=== PATIENT | female | born 1955 | race Caucasian/White ===

== ENCOUNTER 2019-11-06 07:25 | Outpatient (CLI) | payer OTHER, SELFPAY ==
[2019-11-06 08:33] LABS: Eosinophils Percent Auto 0.6 % (0-4.4); Hematocrit 49.1 % (37.0-47.0); Hemoglobin 15.7 g/dL (12.0-15.0); Immature Platelet Fraction Pct 8.3 % (0.9-11.2); Lymphocytes Percent Auto 24.8 % (18.3-44.2); Mean Corpuscular Volume 75.2 fl (80-100); Monocytes Absolute Auto 0.6 K/mm3 (0.1-0.6); Monocytes Percent Auto 34.2 % (2.6-8.5); Neutrophils Absolute Auto 0.7 K/mm3 (1.3-6.7); Neutrophils Percent Auto 40.4 % (45.5-73.1); Red Blood Count 6.53 M/mm3 (4.2-5.4); Red Cell Distribution Width 19.9 % (11.5-14.5)
[2019-11-06 09:07] LABS: Platelet Count Result 19 k/mm3 (150-375); White Blood Count 1.6 K/mm3 (4.5-10.0)
== END 2019-11-06 07:26 | disposition home or self-care (01) ==
PROVIDERS: PCP Family Medicine; Visit Provider Internal Medicine Medical Oncology
DX: D47.1 Chronic myeloproliferative disease (principal)
CPT/HCPCS: 36415; 85025; 85055

== ENCOUNTER 2019-11-17 07:12 | Outpatient (RCR) | payer OTHER, SELFPAY ==
[2019-11-10 08:12] LABS: Basophils Percent Auto 0.3 % (0.2-1.2); Eosinophils Percent Auto 1.1 % (0-4.4); Hematocrit 44.6 % (37.0-47.0); Hemoglobin 14.8 g/dL (12.0-15.0); Immature Granulocyte Absolute 0.01 K/mm3 (0.00-0.031); Immature Granulocyte Percent A 0.3 % (0-0.5); Immature Platelet Fraction Pct 10.8 % (0.9-11.2); Lymphocytes Absolute Auto 1.08 K/mm3 (0.9-3.2); Lymphocytes Percent Auto 29.7 % (18.3-44.2); Mean Corpuscular HGB Conc 33.2 g/dl (32-36); Mean Corpuscular Hemoglobin 24.1 pg (26-34); Mean Corpuscular Volume 72.8 fl (80-100); Monocytes Absolute Auto 0.8 K/mm3 (0.1-0.6); Monocytes Percent Auto 20.9 % (2.6-8.5); Neutrophils Absolute Auto 1.7 K/mm3 (1.3-6.7); Neutrophils Percent Auto 47.7 % (45.5-73.1); Platelet Count Result 37 k/mm3 (150-375); Red Blood Count 6.13 M/mm3 (4.2-5.4); Red Cell Distribution Width 19.5 % (11.5-14.5); White Blood Count 3.6 K/mm3 (4.5-10.0)
[2019-11-17 07:42] LABS: Basophils Percent Auto 0.8 % (0.2-1.2); Eosinophils Absolute Auto 0.1 K/mm3 (0-0.3); Eosinophils Percent Auto 1.3 % (0-4.4); Hematocrit 43.6 % (37.0-47.0); Hemoglobin 13.9 g/dL (12.0-15.0); Immature Granulocyte Absolute 0.01 K/mm3 (0.00-0.031); Immature Granulocyte Percent A 0.2 % (0-0.5); Lymphocytes Absolute Auto 1.15 K/mm3 (0.9-3.2); Lymphocytes Percent Auto 21.9 % (18.3-44.2); Mean Corpuscular HGB Conc 31.9 g/dl (32-36); Mean Corpuscular Hemoglobin 24.4 pg (26-34); Mean Corpuscular Volume 76.6 fl (80-100); Monocytes Absolute Auto 0.9 K/mm3 (0.1-0.6); Monocytes Percent Auto 17.5 % (2.6-8.5); Neutrophils Absolute Auto 3.1 K/mm3 (1.3-6.7); Neutrophils Percent Auto 58.3 % (45.5-73.1); Platelet Count Result 172 k/mm3 (150-375); Red Blood Count 5.69 M/mm3 (4.2-5.4); White Blood Count 5.3 K/mm3 (4.5-10.0)
== END 2020-02-08 23:59 | disposition home or self-care (01) ==
LOC: ANHLAB 07:12
PROVIDERS: PCP Family Medicine; Visit Provider Internal Medicine Medical Oncology
DX: D47.1 Chronic myeloproliferative disease (principal)
CPT/HCPCS: 36415; 85025; 85055

== ENCOUNTER 2019-11-21 11:41 | Outpatient (CLI) | payer OTHER, SELFPAY ==
--- NOTE | ~2019-11-21 | XR_ITS ---
EXAMINATION: XR thoracic spine 3V DATE: 11/21/2019 12:07 INDICATION: Thoracic back pain TECHNIQUE: AP, lateral and lateral swimmer's views of the thoracic spine were obtained. COMPARISON: 08/09/2017 FINDINGS: The vertebral body heights and alignment are normal. The intervertebral disc spaces are nomi ntained. There is no fracture. Small degenerative osteophytes project from the anterior endplates of multiple vertebral bodies. Median sternotomy wires and mediastinal surgical clips are seen, likely fr om prior coronary artery bypass grafting. IMPRESSION: 1. Mild thoracic spondylosis without acute findings or significant interval change. Reviewed, dictated and finalized at location A. TECHNICIAN IMPRESSION: 1. Mild thoracic spondylosis without acute findings or significant interval finn cande.
== END 2019-11-21 11:42 | disposition home or self-care (01) ==
LOC: ANHIMG 11:54
PROVIDERS: PCP Family Medicine; Visit Provider Family Medicine
DX: M47.814 Spondylosis without myelopathy or radiculopathy, thoracic region (principal)
CPT/HCPCS: 72072

== ENCOUNTER 2020-01-19 06:35 | Outpatient (RCR) | payer OTHER, SELFPAY ==
[2019-11-04 08:06] LABS: Basophils Percent Auto 0.4 % (0.2-1.2); Eosinophils Percent Auto 0.4 % (0-4.4); Hematocrit 48.9 % (37.0-47.0); Hemoglobin 15.9 g/dL (12.0-15.0); Immature Granulocyte Absolute 0.01 K/mm3 (0.00-0.031); Immature Granulocyte Percent A 0.4 % (0-0.5); Lymphocytes Absolute Auto 1.19 K/mm3 (0.9-3.2); Lymphocytes Percent Auto 46.9 % (18.3-44.2); Mean Corpuscular HGB Conc 32.5 g/dl (32-36); Mean Corpuscular Hemoglobin 24.4 pg (26-34); Mean Corpuscular Volume 75.1 fl (80-100); Monocytes Absolute Auto 0.9 K/mm3 (0.1-0.6); Monocytes Percent Auto 36.6 % (2.6-8.5); Neutrophils Absolute Auto 0.4 K/mm3 (1.3-6.7); Neutrophils Percent Auto 15.3 % (45.5-73.1); Red Blood Count 6.51 M/mm3 (4.2-5.4); Red Cell Distribution Width 19.7 % (11.5-14.5); White Blood Count 2.5 K/mm3 (4.5-10.0)
[2019-11-04 08:15] LABS: Platelet Count Result 22 k/mm3 (150-375)
[2019-11-04 08:16] LABS: Platelet Estimate Decreased (Adequate)
[2019-11-04 08:17] LABS: Ovalocytes 1+ (NORMAL); Poikilocytosis 1+ (NORMAL); Target Cells 1+ (NORMAL)
[2019-11-04 08:20] LABS: Alanine Aminotransferase 33 U/L (4-35); Alkaline Phosphatase 148 U/L (38-126); Aspartate Amino Transferase 53 U/L (14-36); Bilirubin,Total 1.3 mg/dL (0.2-1.3); Blood Urea Nitrogen 45 mg/dL (7-17); Calcium 8.8 mg/dL (8.4-10.2); Carbon Dioxide 16 mmol/L (22-30); Chloride 108 mmol/L (98-107); Estimated Glomerular Filt Rate 22; Glucose 110 mg/dL (65-105); Potassium 4.9 mmol/L (3.4-5.0); Sodium 139 mmol/L (137-145)
[2019-11-04 08:45] LABS: Carcinoembryonic Antigen 10.9 ng/mL (0.0-3.0)
[2019-12-05 15:53] LABS: Hematocrit 39.9 % (37.0-47.0); Hemoglobin 12.8 g/dL (12.0-15.0); Mean Corpuscular HGB Conc 32.1 g/dl (32-36); Mean Corpuscular Hemoglobin 25.2 pg (26-34); Mean Corpuscular Volume 78.5 fl (80-100); Mean Platelet Volume 11.5 fl (7.4-10.4); Platelet Count Result 824 k/mm3 (150-375); Red Blood Count 5.08 M/mm3 (4.2-5.4); Red Cell Distribution Width 26.3 % (11.5-14.5); White Blood Count 9.2 K/mm3 (4.5-10.0)
[2019-12-05 16:04] LABS: Alanine Aminotransferase 14 U/L (4-35); Albumin Level 3.9 g/dL (3.5-5.1); Alkaline Phosphatase 135 U/L (38-126); Aspartate Amino Transferase 26 U/L (14-36); Bilirubin,Total 0.6 mg/dL (0.2-1.3); Blood Urea Nitrogen 37 mg/dL (7-17); Calcium 8.8 mg/dL (8.4-10.2); Carbon Dioxide 20 mmol/L (22-30); Chloride 110 mmol/L (98-107); Estimated Glomerular Filt Rate 20; Glucose 87 mg/dL (65-105); Potassium 4.8 mmol/L (3.4-5.0); Sodium 141 mmol/L (137-145)
[2019-12-05 16:16] LABS: Band Neutrophils Percent 2 % (0-6); Eosinophils Absolute Manual 0.18 K/mm3 (0.02-0.5); Eosinophils Percent Manual 2 % (0-4); Lymphocytes Absolute Manual 1.74 K/mm3 (1.1-4.5); Monocytes Absolute Manual 1.38 K/mm3 (0.1-0.90); Monocytes Percent Manual 15 % (3-9); Neutrophils Absolute Manual 5.88 K/mm3 (1.7-7.2); Neutrophils Percent Manual 62 % (46-73); Platelet Estimate Adequate (Adequate); Total Cells Counted 100
[2019-12-05 16:34] LABS: Carcinoembryonic Antigen 7.8 ng/mL (0.0-3.0)
[2020-01-19 07:36] LABS: Potassium 4.2 mmol/L (3.4-5.0)
[2020-01-19 07:38] LABS: Alanine Aminotransferase 16 U/L (4-35); Albumin Level 4.1 g/dL (3.5-5.1); Alkaline Phosphatase 123 U/L (38-126); Aspartate Amino Transferase 32 U/L (14-36); Bilirubin,Total 0.7 mg/dL (0.2-1.3); Blood Urea Nitrogen 38 mg/dL (7-17); Calcium 9.1 mg/dL (8.4-10.2); Carbon Dioxide 19 mmol/L (22-30); Chloride 111 mmol/L (98-107); Estimated Glomerular Filt Rate 17; Glucose 153 mg/dL (65-105); Sodium 138 mmol/L (137-145)
[2020-01-19 08:36] LABS: Basophils Absolute Auto 0.1 K/mm3 (0.0-0.1); Basophils Percent Auto 1.4 % (0.2-1.2); Eosinophils Absolute Auto 0.3 K/mm3 (0-0.3); Eosinophils Percent Auto 4.8 % (0-4.4); Hematocrit 34.1 % (37.0-47.0); Hemoglobin 10.9 g/dL (12.0-15.0); Immature Granulocyte Absolute 0.03 K/mm3 (0.00-0.031); Immature Granulocyte Percent A 0.4 % (0-0.5); Immature Platelet Fraction Pct 10.5 % (0.9-11.2); Lymphocytes Absolute Auto 2.44 K/mm3 (0.9-3.2); Lymphocytes Percent Auto 34.8 % (18.3-44.2); Mean Corpuscular Hemoglobin 27.9 pg (26-34); Mean Corpuscular Volume 87.2 fl (80-100); Mean Platelet Volume 12.4 fl (7.4-10.4); Monocytes Percent Auto 14.2 % (2.6-8.5); Neutrophils Absolute Auto 3.1 K/mm3 (1.3-6.7); Neutrophils Percent Auto 44.4 % (45.5-73.1); Nucleated Red Blood Cells Perc 0.6 % (0.0-0.2); Platelet Count Result 356 k/mm3 (150-375); Red Blood Count 3.91 M/mm3 (4.2-5.4); Red Cell Distribution Width 26.8 % (11.5-14.5)
== END 2020-02-02 23:59 | disposition home or self-care (01) ==
LOC: ANHLAB 06:35
PROVIDERS: PCP Family Medicine; Visit Provider Internal Medicine Medical Oncology
DX: D47.1 Chronic myeloproliferative disease (principal); C18.9 Malignant neoplasm of colon, unspecified
CPT/HCPCS: 36415; 80053; 82378; 85025; 85055

== ENCOUNTER 2020-02-06 05:58 | Outpatient (CLI) | payer OTHER, SELFPAY ==
[2020-02-06 17:05] LABS: SARS-CoV-2 RNA PCR Negative
== END 2020-02-06 05:59 | disposition home or self-care (01) ==
LOC: ANHCOVIDDT 06:00
PROVIDERS: PCP Family Medicine; Visit Provider Specialist
DX: Z01.818 Encounter for other preprocedural examination (principal); Z11.59 Encounter for screening for other viral diseases
CPT/HCPCS: 87635; C9803; U0003

== ENCOUNTER 2020-02-09 05:50 | Day surgery (SDC) | payer OTHER, SELFPAY ==
[2020-02-06 17:22] VITALS: BMI 25.4
[2020-02-09] VITALS (7 sets, daily range): BP systolic 98–189; BP diastolic 45–76; PULSE 45–56; RESP 10–14; TEMP 36.3; O2SAT 94–100; BMI 25.4
--- NOTE | 2020-02-09 | ECHO_ITS ---
Patient Info Name: Jennifer Georges Age: 64 years : 1955 Gender: Female Ht: 60 in Wt: 130 lbs BSA: 1.59 m2 HR: 54 bpm BP: 165 / 68 mmHg Heart Rhythm: Bradycardia Technical Quality: Good Exam Date: 02/09/2020 9:53 AM Exam Location: [facility] Patient Status: Outpatient Admit Date: 02/09/2020 Staff Ordering Physician: Bertrand Yadav MD Utility Worker: Mook Peres RDCS Attending Provider: Bertrand Yadav MD Referring Physician: Vicenta PALOMO; Exam Type: CA echo transesophageal Study Info Indications 436.0 - CVA Complete two-dimensional, color flow and Doppler transesophageal study is performed. History/Risk Factors CVAs; CAD s/p CABG. Procedure Details The patient arrived in a fasting state after obtaining informed consent. The transesophageal probe was passed into the posterior pharynx, mid-esophagus, distal esophagus, and gastric fundus. Imaging was performed at multiple levels. The patient tolerated the procedure well and there were no complications. The patient was transferred out of the examination area in satisfactory condition. Summary 1. The patient arrived in a fasting state after obtaining informed consent. The transesophageal probe was passed into the posterior pharynx, mid-esophagus, distal esophagus, and gastric fundus. Imaging was performed at multiple levels. The patient tolerated the procedure well and there were no complications. The patient was transferred out of the examination area in satisfactory condition. 2. Intact interatrial septum visualized by agitated saline imaging. 3. No patent ovale evident (PFO) by agitated saline imaging. 4. The mitral valve has normal leaflets. 5. Mild MR is seen. 6. Normal tricuspid valve. 7. No apparent cardioembolic source seen . No PFO. Left Ventricle Left ventricular chamber size are normal with no regional wall motion abnormalities with an estimated ejection fraction of 50-55%. Right Ventricle Right ventricle chamber size are normal. Left Atria Left atrial chamber dimension is normal. Right Atria Right atrial chamber dimension is normal. Atrial Septum Intact interatrial septum visualized by agitated saline imaging. No patent ovale evident (PFO) by agitated saline imaging. Aortic Valve The aortic valve is normal. Pulmonic Valve Normal pulmonic valve. Mitral Valve The mitral valve has normal leaflets. Mild MR is seen. Tricuspid Valve Normal tricuspid valve. Report Signatures
--- NOTE | 2020-02-09 09:41 | PM.IMHP ---
H&P: HPI History of Present Illness Chief complaint: CVA Narrative: Jennifer Georges is a 64 year old female who has a history of coronary artery disease with severe single-vessel disease in the past with interventional revascularization in the LAD. Despite this she had unfortunately repeated restenoses and ultimately had to undergo surgical revascularization. She received an EMELINA to the LAD back in 2001 and has done well since then. The patient was recently referred back to see me in the office because she had had a.m. CVA. She was hospitalized at [facility] and all [place] with a CVA had some motor weakness of the right arm was found to have an acute stroke of the left hemisphere. She was placed on more intensive anti-platelet therapy an echocardiogram was done which was negative. A transesophageal echocardiogram was recommended by the Neurology biometrics consultant down there but for reasons that were unclear to me was not done while she was in a hospital down there and she was referred to see me in the office and a BRANDEE was scheduled for today. Review of Systems Constitutional: Constitutional: Reports no additional constitutional complaints Eyes: Eyes: Reports no additional eye complaints ENT: Reports system reviewed and no additional complaints, except as documented Cardiovascular: Cardiovascular: Reports no additional cardiovascular complaints Respiratory: Respiratory: Reports no additional respiratory complaints Gastrointestinal: Gastrointestinal: Reports no additional gastrointestinal complaints Musculoskeletal: Musculoskeletal: Reports no additional musculoskeletal complaints Integumentary/Breasts: Skin/Breast: Reports system reviewed and no additional complaints, except as docu Neurologic: Reports as per HPI Comments: Persistent motor weakness of the right upper extremity PMFSH Family History Family History (Updated 11/15/17 @ 14:26 by DOCTOR UNKNOWN) Mother Family history of throat cancer Family history of emphysema Family history of chronic obstructive pulmonary disease Sibling Family history of thyroid disease Hypertension Family history of kidney disease Family history of diabetes mellitus in first degree relative Family history of heart disease in male family member before age 55 Family history of lung cancer Father Acute myocardial infarction Other Diabetes mellitus Family history of cardiovascular disease Social History Social History Smoking status: Former smoker Smoking end date: 09/24/94 Alcohol intake: never Gender identity (if verbalized by the patient): Female Meds Home Medications and Allergies Home Medications Medication Instructions Recorded Confirmed Type amlodipine 5 mg PO DAILY 02/06/20 02/06/20 History aspirin 81 mg PO DAILY 02/06/20 02/06/20 History clopidogrel 75 mg PO DAILY 02/06/20 02/06/20 History metoprolol tartrate 25 mg PO Q12H 02/06/20 02/06/20 History pantoprazole 40 mg PO HS 02/06/20 02/06/20 History rosuvastatin 20 mg PO DAILY 02/06/20 02/06/20 History Allergies Allergy/AdvReac Type Severity Reaction Status Date / Time codeine Allergy Unknown Nausea And Verified 11/15/17 13:30 Vomiting Iodinated Contrast Media Allergy Unknown Anaphylaxis Verified 11/15/17 13:32 iodine Allergy Unknown Verified 08/03/11 16:11 Penicillins Allergy Unknown Hives Verified 11/15/17 13:32 sumatriptan Allergy Unknown elevated Verified 11/15/17 13:31 blood pressure Contrast Media Allergy Unknown ANAPHYLAXIS Uncoded 06/09/19 19:32 Vital Signs Vital Signs - 24 hr 02/09/20 09:14 Temperature 36.3 C L Pulse Rate 48 L Blood Pressure 176/67 H Pulse Oximetry 100 Exam Const: General: comfortable and no acute distress HENMT: Mouth: Yes moist mucous membranes Eyes: Sclera: sclerae normal Pupils: Equal, round and reactive pupils present Neck: Neck: supple and no JVD Thyroid: thyroid normal Carotids: bruit Resp: Effort & I
--- NOTE | 2020-02-09 09:47 | P.SEDATION_ITS ---
Moderate Sedation Note-Pt Data Patient Data Diagnosis: Recent ischemic CVA Present Complaint: Mild persistent right upper extremity motor weakness Procedure to be performed/Plan: Transesophageal echocardiogram Allergies Allergy/AdvReac Type Severity Reaction Status Date / Time codeine Allergy Unknown Nausea And Verified 11/15/17 13:30 Vomiting Iodinated Contrast Media Allergy Unknown Anaphylaxis Verified 11/15/17 13:32 iodine Allergy Unknown Verified 08/03/11 16:11 Penicillins Allergy Unknown Hives Verified 11/15/17 13:32 sumatriptan Allergy Unknown elevated Verified 11/15/17 13:31 blood pressure Contrast Media Allergy Unknown ANAPHYLAXIS Uncoded 06/09/19 19:32 Home Medications Medication Instructions Recorded Confirmed Type amlodipine 5 mg PO DAILY 02/06/20 02/06/20 History aspirin 81 mg PO DAILY 02/06/20 02/06/20 History clopidogrel 75 mg PO DAILY 02/06/20 02/06/20 History metoprolol tartrate 25 mg PO Q12H 02/06/20 02/06/20 History pantoprazole 40 mg PO HS 02/06/20 02/06/20 History rosuvastatin 20 mg PO DAILY 02/06/20 02/06/20 History Sedation/Anesthesia: No previous sedation/anesthesia problems (including family history). [facility] Family History Family History (Updated 11/15/17 @ 14:26 by DOCTOR UNKNOWN) Mother Family history of throat cancer Family history of emphysema Family history of chronic obstructive pulmonary disease Sibling Family history of thyroid disease Hypertension Family history of kidney disease Family history of diabetes mellitus in first degree relative Family history of heart disease in male family member before age 55 Family history of lung cancer Father Acute myocardial infarction Other Diabetes mellitus Family history of cardiovascular disease Social History Social History Smoking status: Former smoker Smoking end date: 09/24/94 Alcohol intake: never Gender identity (if verbalized by the patient): Female Mod Sed Physical Exam Physical Exam Pre Procedural Exam: Normal: Appearance, Nose, Neck, Throat, Airway, Lungs, Heart Size, Heart Rate, Heart Rhythm and Extremities and Variation: Neuro Exam (Alert and oriented x3. Modest residual motor weakness of the right upper extremity) Hours since solid foods: 12 Hours since liquid intake: 12 Internal Medicine - PN: Obj Da Vital Signs Vital Signs: Vital Signs - 24 hr 02/09/20 09:14 Temperature 36.3 C L Pulse Rate 48 L Blood Pressure 176/67 H Pulse Oximetry 100 ASA Classification/Sedation ASA Classification/Sedation ASA Class: II Emergent: No Risks: Risks, benefits and alternatives explained and patient/family accepted plan for sedation. Patient re-evaluated immediately prior to sedation.
--- NOTE | 2020-02-09 10:08 | P.PCNCC_ITS ---
Cardiac Cath Procedure Note Date of procedure:: 02/09/20 Performing physician:: Bertrand Yadav MD Indication:: Recent ischemic CVA, rule out patent foramen ovale Brief clinical history:: This is a 64-year-old woman with coronary artery disease who underwent CABG 18 years ago. She has recently had 2 neurological events with 1 definite CVA of the left hemisphere. A neurology sec reporting consultant at another institution recommended an esophageal echo to rule out a PFO Procedure Procedure performed:: Transesophageal echocardiography with agitated saline contrast injection Sedation/Medication given:: Fentanyl 50 mg Versed 4 mg Case start time 9:58 a.m. Case end time 10:06 a.m. Sedation provided by Russell Ghosh RN , trained observer Estimated blood loss:: No blood loss Procedure note:: The patient was brought to the cardiac catheterization lab holding area in the postabsorptive state. The IV access was placed in the antecubital vein and the patient was in the supine position pleural pharyngeal benzocaine was used topical anesthetic. Following this she was sedated with fentanyl and aliquots of Versed as detailed above. Patient was well sedated and had no difficulty tolerating procedure. Following sedation transesophageal echocardiography probe was placed into the esophagus and the exam was carried out as detailed below. Following optimization of the probe physician agitated saline contrast was injected to rule out an intracardiac shunt. Following this the case was terminated. Findings:: The left atrium is mildly enlarged. The mitral valve leaflets appear unremarkable there is a mild mitral valve regurgitation seen by color Doppler. The left ventricle is of normal size and contracts well in all segments the global ejection fraction I would estimate to be 50-55%. The aortic valve is a trileaflet structure that is mildly sclerotic but not stenotic. There is a trivial jet of AI. Aortic root dimension is normal the right-sided chambers are unremarkable in size and appearance the tricuspid and pulmonic valves look normal. The interatrial septum appears to be visually normal and intact there is no visible discontinuity for flap consistent with PFO. Color Doppler interrogation of the septum shows no evidence of a shunt. And agitated saline contrast showed excellent opacification of the right heart chambers and no evidence of an intracardiac shunt. Conclusion:: Modest left atrial enlargement Normal left ventricular systolic function Mild MR Mild aortic sclerosis with trivial AI Normal appearing atrial septum and no evidence of a patent foramen ovale Bertrand Yadav MD [facility]
== END 2020-02-09 11:43 | disposition home or self-care (01) ==
PROVIDERS: PCP Family Medicine; Visit Provider Specialist
PROC: (CPT 93312; principal; 2020-02-09 10:00)
DX: I25.10 Atherosclerotic heart disease of native coronary artery without angina pectoris (principal); Z95.1 Presence of aortocoronary bypass graft; Z87.891 Personal history of nicotine dependence; I69.351 Hemiplegia and hemiparesis following cerebral infarction affecting right dominant side
CPT/HCPCS: 93312; 93320; 93325; J2250; J3010; J7040

== ENCOUNTER 2020-04-26 12:31 | Outpatient (CLI) | payer OTHER, SELFPAY ==
[2020-04-26 13:23] LABS: Anion Gap 9.3 mmol/L (7-16); Blood Urea Nitrogen 31 mg/dL (7-17); Carbon Dioxide 24 mmol/L (22-30); Chloride 111 mmol/L (98-107); Estimated Glomerular Filt Rate 24; Glucose 103 mg/dL (65-105); Potassium 4.3 mmol/L (3.4-5.0); Sodium 140 mmol/L (137-145)
== END 2020-04-26 12:32 | disposition home or self-care (01) ==
PROVIDERS: PCP Family Medicine
DX: N18.4 Chronic kidney disease, stage 4 (severe) (principal)
CPT/HCPCS: 36415; 80048

== ENCOUNTER 2020-05-04 10:44 | Outpatient (RCR) | payer OTHER, SELFPAY ==
[2020-03-22 10:21] LABS: Basophils Absolute Auto 0.1 K/mm3 (0.0-0.1); Basophils Percent Auto 1.1 % (0.2-1.2); Eosinophils Absolute Auto 0.3 K/mm3 (0-0.3); Eosinophils Percent Auto 3.2 % (0-4.4); Hematocrit 38.4 % (37.0-47.0); Hemoglobin 12.5 g/dL (12.0-15.0); Immature Granulocyte Absolute 0.02 K/mm3 (0.00-0.031); Immature Granulocyte Percent A 0.2 % (0-0.5); Lymphocytes Absolute Auto 2.98 K/mm3 (0.9-3.2); Mean Corpuscular HGB Conc 32.6 g/dl (32-36); Mean Corpuscular Hemoglobin 30.9 pg (26-34); Mean Platelet Volume 11.6 fl (7.4-10.4); Monocytes Absolute Auto 1.4 K/mm3 (0.1-0.6); Monocytes Percent Auto 14.8 % (2.6-8.5); Neutrophils Absolute Auto 4.5 K/mm3 (1.3-6.7); Neutrophils Percent Auto 48.7 % (45.5-73.1); Nucleated Red Blood Cells Perc 0.2 % (0.0-0.2); Platelet Count Result 551 k/mm3 (150-375); Red Blood Count 4.04 M/mm3 (4.2-5.4); Red Cell Distribution Width 15.6 % (11.5-14.5); White Blood Count 9.3 K/mm3 (4.5-10.0)
[2020-03-22 10:33] LABS: Cholesterol 236 mg/dL (0-200); HDL Direct 59 mg/dL; Triglycerides 145 mg/dL (<150)
[2020-03-22 10:44] LABS: LDL Cholesterol Direct 127 mg/dL
[2020-05-04 10:57] LABS: Basophils Absolute Auto 0.1 K/mm3 (0.0-0.1); Basophils Percent Auto 1.6 % (0.2-1.2); Eosinophils Absolute Auto 0.3 K/mm3 (0-0.3); Eosinophils Percent Auto 3.2 % (0-4.4); Hematocrit 38.1 % (37.0-47.0); Hemoglobin 12.4 g/dL (12.0-15.0); Immature Granulocyte Absolute 0.03 K/mm3 (0.00-0.031); Immature Granulocyte Percent A 0.3 % (0-0.5); Lymphocytes Percent Auto 34.7 % (18.3-44.2); Mean Corpuscular HGB Conc 32.5 g/dl (32-36); Mean Corpuscular Hemoglobin 30.6 pg (26-34); Mean Corpuscular Volume 94.1 fl (80-100); Mean Platelet Volume 11.7 fl (7.4-10.4); Monocytes Absolute Auto 1.3 K/mm3 (0.1-0.6); Monocytes Percent Auto 14.1 % (2.6-8.5); Neutrophils Absolute Auto 4.1 K/mm3 (1.3-6.7); Neutrophils Percent Auto 46.1 % (45.5-73.1); Nucleated Red Blood Cells Absolute Auto 0.1 K/mm3 (0.0-0.012); Nucleated Red Blood Cells Perc 0.7 % (0.0-0.2); Platelet Count Result 539 k/mm3 (150-375); Red Blood Count 4.05 M/mm3 (4.2-5.4); Red Cell Distribution Width 16.7 % (11.5-14.5); White Blood Count 8.9 K/mm3 (4.5-10.0)
[2020-05-04 11:10] LABS: Cholesterol 260 mg/dL (0-200); HDL Direct 56 mg/dL; Triglycerides 133 mg/dL (<150)
[2020-05-04 11:22] LABS: LDL Cholesterol Direct 162 mg/dL
== END 2020-06-20 23:59 | disposition home or self-care (01) ==
LOC: ANHLAB 10:44
PROVIDERS: PCP Family Medicine; Visit Provider Internal Medicine Medical Oncology
DX: D47.1 Chronic myeloproliferative disease (principal); I25.119 Atherosclerotic heart disease of native coronary artery with unspecified angina pectoris
CPT/HCPCS: 36415; 80061; 85025

== ENCOUNTER 2020-07-13 08:52 | Outpatient (CLI) | payer OTHER, SELFPAY ==
--- NOTE | ~2020-07-13 | MM_ITS ---
EXAMINATION: MM screening garth BI w tasha HISTORY: Screening mammogram TECHNIQUE: Craniocaudal and mediolateral oblique 3-D tomosynthesis images were obtained and synthetic 2-D images were generated. CAD analysis was submitted and interpreted. COMPARISON: 10/12/2019 diagnostic left digital mammogram and limited left breast ultrasound 05/12/2019 diagnostic left digital mammogram and limited left breast ultrasound 04/03/2019 bilateral digital screening mammogram 03/18/2018 diagnostic right digital mammogram 03/14/2018 bilateral digital screening mammogram BREAST PARENCHYMAL COMPOSITION: There are scattered areas of fibroglandular density. FINDINGS: Stable mild fibroglandular asymmetry. There is no evidence of suspicious mass, calcificatio n, or architectural distortion to suggest malignancy in either breast. There has been no suspicious i nterval change. IMPRESSION: 1. No mammographic evidence of malignancy. 2. Recommend routine screening mammography in one year. BI-RADS Category 2: Benign finding(s).. Reviewed, dictated and finalized at location A.
== END 2020-07-13 08:53 | disposition home or self-care (01) ==
PROVIDERS: PCP Family Medicine; Visit Provider Obstetrics & Gynecology
DX: Z12.31 Encounter for screening mammogram for malignant neoplasm of breast (principal)
CPT/HCPCS: 77063; 77067

== ENCOUNTER 2020-08-05 13:22 | Outpatient (CLI) | payer OTHER, SELFPAY ==
--- NOTE | 2020-08-05 14:30 | NEURO_ITS ---
Impression: # Complains of cramps in hands. # No evidence of neuropathy, myotonia, Carpal Tunnel Syndrome or ulnar neuropathy. # Normal needle/EMG exam. # Clinical correlation recommended. Nerve Conduction Studies Anti Sensory Summary Table Stim Site NR Peak (ms) P-T Amp (?V) Site1 Site2 Delta-P (ms) Dist (cm) Josh (m/s) Left Median Anti Sensory (2-3nd Digit) Wrist 2.7 84.2 Wrist 2-3nd Digit 2.7 14.0 52 Wrist 2.7 80.6 Wrist 2-3nd Digit 2.7 14.0 52 Right Median Anti Sensory (2-3nd Digit) Wrist 2.8 86.2 Wrist 2-3nd Digit 2.8 14.0 50 Wrist 2.7 84.0 Wrist 2-3nd Digit 2.8 14.0 50 Left Radial Anti Sensory (Base 1st Digit) Wrist 2.2 15.4 Wrist Base 1st Digit 2.2 0.0 Right Radial Anti Sensory (Base 1st Digit) Wrist 2.0 36.9 Wrist Base 1st Digit 2.0 0.0 Left Ulnar Anti Sensory (5th Digit) Wrist 2.5 44.6 Wrist 5th Digit 2.5 14.0 56 Right Ulnar Anti Sensory (5th Digit) Wrist 2.4 96.6 Wrist 5th Digit 2.4 14.0 58 Motor Summary Table Stim Site NR Onset (ms) O-P Amp (mV) Site1 Site2 Delta-0 (ms) Dist (cm) Josh (m/s) Left Median Motor (Abd Poll Brev) Wrist 2.6 5.0 Elbow Wrist 3.9 26.0 67 Elbow 6.5 4.8 Right Median Motor (Abd Poll Brev) Wrist 2.7 6.5 Elbow Wrist 4.3 25.0 58 Elbow 7.0 2.8 Left Ulnar Motor (Abd Dig Minimi) Wrist 2.0 6.8 A Elbow Wrist 4.3 27.0 63 A Elbow 6.3 5.1 Right Ulnar Motor (Abd Dig Minimi) Wrist 2.8 6.9 A Elbow Wrist 4.2 26.0 62 A Elbow 7.0 5.8 F Wave Studies NR F-Lat (ms) L-R F-Lat (ms) Left Median (Mrkrs) (Abd Poll Brev) 25.08 0.48 Right Median (Mrkrs) (Abd Poll Brev) 25.56 0.48 Left Ulnar (Mrkrs) (Abd Dig Min) 25.11 0.91 Right Ulnar (Mrkrs) (Abd Dig Min) 26.02 0.91 EMG Side Muscle Nerve Root Ins Act Fibs Amp Dur Recrt Comment Right 1stDorInt Ulnar C8-T1 Nml Nml Nml Nml Nml Right Ext Indicis Radial (Post Int) C7-8 Nml Nml Nml Nml Nml Right Ext Digitorum Radial (Post Int) C7-8 Nml Nml Nml Nml Nml Right BrachioRad Radial C5-6 Nml Nml Nml Nml Nml Right PronatorTeres Median C6-7 Nml Nml Nml Nml Nml Right Abd Poll Brev Median C8-T1 Nml Nml Nml Nml Nml Left 1stDorInt Ulnar C8-T1 Nml Nml Nml Nml Nml Left Ext Indicis Radial (Post Int) C7-8 Nml Nml Nml Nml Nml Left Ext Digitorum Radial (Post Int) C7-8 Nml Nml Nml Nml Nml Left BrachioRad Radial C5-6 Nml Nml Nml Nml Nml Left PronatorTeres Median C6-7 Nml Nml Nml Nml Nml Left Abd Poll Brev Median C8-T1 Nml Nml Nml Nml Nml Right ABD Dig Min Ulnar C8-T1 Nml Nml Nml Nml Nml Left ABD Dig Min Ulnar C8-T1 Nml Nml Nml Nml Nml MTDD
== END 2020-08-05 13:23 | disposition home or self-care (01) ==
PROVIDERS: PCP Family Medicine; Visit Provider Psychiatry & Neurology Neurology
DX: R25.2 Cramp and spasm (principal)
CPT/HCPCS: 95886; 95911

== ENCOUNTER 2020-08-24 13:01 | Outpatient (CLI) | payer OTHER, SELFPAY ==
--- NOTE | ~2020-08-24 | XR_ITS ---
XR lumbar spine 2-3V 08/24/2020 13:32 Indication: Thoracic back pain Procedure: 3 views lumbar spine Comparison: 08/09/2017 Findings: Vertebral body heights are maintained. No significant disc narrowing. No evidence for spond ylolysis or spondylolisthesis. Pedicles intact. There are cholecystectomy clips. Impression: 1: No significant abnormality of the lumbar spine. Reviewed, dictated and finalized at location B. CIATE PROJECT MANAGER Impression: 1: No significant abnormality of the lumbar spine.
--- NOTE | ~2020-08-24 | XR_ITS ---
EXAMINATION: XR thoracic spine 3V DATE: 08/24/2020 13:32 INDICATION: Thoracic back pain. TECHNIQUE: One AP, lateral and lateral swimmer's views of the thoracic spine were obtained. COMPARISON: None. FINDINGS: Alignment is normal. Vertebral body heights are normal. Multilevel mild disc height loss throughout t he majority of the thoracic spine. Moderate disc height loss at C5-C6 and mild disc height loss at C6 -C7. Calcified nodule at the left posterior sulcus consistent with old granulomatous disease. No pneu mothorax or pleural effusion. Median sternotomy wires and mediastinal surgical clips are seen, likely from prior coronary artery bypass grafting. IMPRESSION: 1. Mild thoracic and moderate lower cervical spondylosis. Reviewed, dictated and finalized at location A. ON SWEATBAND OPERATOR
== END 2020-08-24 13:02 | disposition home or self-care (01) ==
LOC: ANHIMG 13:04
PROVIDERS: PCP Family Medicine; Visit Provider Family Medicine
DX: M47.815 Spondylosis without myelopathy or radiculopathy, thoracolumbar region (principal)
CPT/HCPCS: 72072; 72100

== ENCOUNTER 2021-01-08 09:21 | Outpatient (CLI) | payer OTHER, SELFPAY ==
--- NOTE | ~2021-01-08 | US_ITS ---
EXAMINATION: US carotid duplex BI DATE: 01/08/2021 13:49 INDICATION: Carotid bruit TECHNIQUE: Grayscale, color Doppler, and pulsed Doppler images of the cervical carotid arteries were obtained. The degree of vessel stenosis is placed in one of the following categories: normal, <50%, 5 0-69%, >=70% but less than near-occlusion, near-occlusion, or total occlusion. Note that percent sten osis relative to normal distal artery lumen diameter is indirectly measured from velocity measurement s as described by Clement, et al. Radiology 2003; 229:340-346. COMPARISON: None. FINDINGS: RIGHT: The right common carotid artery (CCA) peak systolic velocity (PSV) is 203.5 cm/s. The right internal carotid artery (ICA) PSV is 96.8 cm/s. The right ICA end-diastolic velocity (EDV) is 24.1 cm/s. The r ight ICA/CCA PSV ratio is normal. Grayscale and color Doppler images yield an estimate of less than 5 0% diameter reduction from plaque in the ICA. The external carotid artery (ECA) PSV is 174.0 cm/s. Th ere is antegrade flow in the right vertebral artery. LEFT: The left CCA PSV is 128.5 cm/s. The left ICA PSV is 87.5 cm/s. The left ICA EDV is 21.5 cm/s. The lef t ICA/CCA PSV ratio is normal. Grayscale and color Doppler images yield an estimate of less than 50% diameter reduction from plaque in the ICA. The ECA PSV is 129.3 cm/s. There is absent flow in the lef t vertebral artery. IMPRESSION: 1. Less than 50% stenosis in the right internal carotid artery. 2. Less than 50% stenosis in the left internal carotid artery. Reviewed, dictated and finalized at Location A. Reviewed, dictated and finalized at location A.
== END 2021-01-08 09:22 | disposition home or self-care (01) ==
PROVIDERS: PCP Family Medicine; Visit Provider Psychiatry & Neurology Neurology
DX: R09.89 Other specified symptoms and signs involving the circulatory and respiratory systems (principal); I65.23 Occlusion and stenosis of bilateral carotid arteries
CPT/HCPCS: 93880

== ENCOUNTER 2021-01-13 09:03 | Outpatient (CLI) | payer OTHER, SELFPAY ==
[2021-01-13 09:48] LABS: LDL Cholesterol Direct 226 mg/dL
[2021-01-13 09:55] LABS: HDL Direct 70 mg/dL; Triglycerides 197 mg/dL (<150)
[2021-01-13 10:00] LABS: Cholesterol 399 mg/dL (0-200)
== END 2021-01-13 09:04 | disposition home or self-care (01) ==
LOC: ANHLAB 09:09
PROVIDERS: PCP Family Medicine; Visit Provider Specialist
DX: Z95.1 Presence of aortocoronary bypass graft (principal)
CPT/HCPCS: 36415; 80061

== ENCOUNTER 2021-07-15 07:12 | Outpatient (CLI) | payer OTHER, SELFPAY ==
--- NOTE | ~2021-07-15 | MM_ITS ---
EXAMINATION: MM screening garth BI w tasha HISTORY: Screening mammogram TECHNIQUE: Craniocaudal and mediolateral oblique 3-D tomosynthesis images were obtained and synthetic 2-D images were generated. CAD analysis was submitted and interpreted. COMPARISON: No prior mammogram is available for comparison at this institution. BREAST PARENCHYMAL COMPOSITION: There are scattered areas of fibroglandular density. FINDINGS: Stable 6.3 mm right axillary tail lymph node. There is no evidence of suspicious mass, calc ification, or architectural distortion to suggest malignancy in either breast. There has been no susp icious interval change. IMPRESSION: 1. No mammographic evidence of malignancy. 2. Recommend routine screening mammography in one year. BI-RADS Category 2: Benign finding(s). Reviewed, dictated and finalized at location A.
== END 2021-07-15 07:13 | disposition home or self-care (01) ==
LOC: ANHIMG 07:14
PROVIDERS: PCP Internal Medicine; Visit Provider Obstetrics & Gynecology
DX: Z12.31 Encounter for screening mammogram for malignant neoplasm of breast (principal)
CPT/HCPCS: 77063; 77067

== ENCOUNTER 2021-09-09 12:49 | Emergency (ER) | payer OTHER, SELFPAY ==
--- NOTE | ~2021-09-09 | XR_ITS ---
EXAMINATION: XR foot RT min 3V DATE: 09/09/2021 13:18 INDICATION: Right foot pain TECHNIQUE: Dorsoplantar, lateral, and 2 oblique views of the right foot were obtained. COMPARISON: None. FINDINGS: There is no fracture, dislocation, or subluxation. 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 There is dorsal soft tissue swelling of the foot. IMPRESSION: 1. No acute osseous abnormality. Reviewed, dictated and finalized at location A. TEGIC BUYER
[2021-09-09 13:01] VITALS: BP 154/81; PULSE 74; RESP 16; TEMP 36.9; O2SAT 100
--- NOTE | 2021-09-09 13:07 | ED.LOWEXIN ---
HPI - Extremity Injury (Lower) General Chief Complaint: Extremity Injury, Lower Stated Complaint: Right Foot Pain Time Seen by Provider: 09/09/21 13:04 Source: patient and RN notes reviewed Mode of arrival: ambulatory Limitations: no limitations History of Present Illness HPI Narrative: Bailey is a 65-year-old female patient who ambulated into the [facility]. Patient is a poor historian. Patient states that she thinks she may have dropped tools on her right foot. Patient states she always has swollen feet and it goes away by the end of the day. Patient has increased swelling to the right foot and calf. Related Data Home Medications Medication Instructions Recorded Confirmed amlodipine 5 mg PO DAILY 02/06/20 09/09/21 aspirin 81 mg PO DAILY 02/06/20 09/09/21 clopidogrel 75 mg PO DAILY 02/06/20 09/09/21 metoprolol tartrate 25 mg PO Q12H 02/06/20 09/09/21 Allergies Allergy/AdvReac Type Severity Reaction Status Date / Time codeine Allergy Unknown Nausea And Verified 11/15/17 13:30 Vomiting Iodinated Contrast Media Allergy Unknown Anaphylaxis Verified 11/15/17 13:32 iodine Allergy Unknown Verified 08/03/11 16:11 Penicillins Allergy Unknown Hives Verified 11/15/17 13:32 sumatriptan Allergy Unknown elevated Verified 11/15/17 13:31 blood pressure Contrast Media Allergy Unknown ANAPHYLAXIS Uncoded 06/09/19 19:32 Review of Systems Review of Systems: CONSTITUTIONAL: Denies body aches, fever, chills, or sweats. EYES: Denies visual changes, redness, or discharge. ENT: Denies rhinorrhea, congestion, sore throat, or otalgia. CARDIOVASCULAR: Denies chest pain, palpitations, or edema. RESPIRATORY: Denies cough or dyspnea. GASTROINTESTINAL: Denies abdominal pain, nausea, vomiting, or diarrhea. GENITOURINARY: Denies dysuria or hematuria. SKIN: Denies rash, itching, or wounds. MUSCULOSKELETAL: Denies back pain, + right foot pain and swelling NEUROLOGIC: Denies headache, numbness, tingling, or weakness. PSYCH: Denies depression or anxiety. All systems reviewed & are unremarkable except as noted in HPI and below PMFSH Family History Family History Mother Family history of throat cancer Family history of emphysema Family history of chronic obstructive pulmonary disease Sibling Family history of thyroid disease Hypertension Family history of kidney disease Family history of diabetes mellitus in first degree relative Family history of heart disease in male family member before age 55 Family history of lung cancer Father Acute myocardial infarction Other Diabetes mellitus Family history of cardiovascular disease Social History Social History Smoking status: Former smoker Smoking end date: 09/24/94 Alcohol intake: never Gender identity (if verbalized by the patient): Female Comments At time of signature, I have reviewed and agree with nursing past medical, surgical, social and family history unless otherwise noted. Please see nursing chart for further information. There is no relevant family history pertinent to the presenting complaint Exam Narrative: GENERAL: Well-appearing, well-nourished, and in no acute distress. HEAD: Normocephalic, atraumatic. EYES: EOMI. No redness or drainage. Conjunctivae normal. ENT: Mucous membranes pink and moist. Nares clear. No rhinorrhea. NECK: Normal AROM. Supple. . CHEST: No respiratory distress. Clear to auscultation. HEART: . Normal peripheral pulses. MUSCULOSKELETAL: No bony tenderness. EXTREMITIES: Normal range of motion. 1+ edema to right foot and calf, pain with palpation to the right anterior ankle; left lower extremity without edema SKIN: Warm, dry, no rash. Capillary refill normal. Normal skin turgor. NEURO: No focal deficits. Alert and oriented x3. Gait steady. PSYCH: Normal affect. No signs of depression or anxiety.
--- NOTE | 2021-09-09 13:52 | PC.NURSE ---
Leann Garnett JAVA SPRING DEVELOPER spoke with Dr Rowland at [facility] has accepted patient. Patient will go by private car. Report to Mylene BERTRAND
== END 2021-09-09 14:00 | disposition short-term general hospital (02) ==
LOC: EXPCOLL 12:53
PROVIDERS: Emergency Provider Nurse Practitioner Family; PCP Internal Medicine
DX: R60.9 Edema, unspecified (principal); Z79.82 Long term (current) use of aspirin; Z87.891 Personal history of nicotine dependence
CPT/HCPCS: 73630; 99213; G0463

== ENCOUNTER 2021-12-12 08:02 | Outpatient (CLI) | payer OTHER, SELFPAY ==
--- NOTE | ~2021-12-12 | CT_ITS ---
EXAMINATION: CT abdomen pelvis wo con DATE: 12/12/2021 08:19 INDICATION: Elevated d-dimer. Right upper quadrant pain. Intestinal hernia. TECHNIQUE: Computed tomography (CT) of the abdomen and pelvis was performed without intravenous contr ast. The dose-length product was 604.90 mGy-cm. COMPARISON: None. FINDINGS: Lung bases are unremarkable. Heart size normal. There is a calcified left lower lobe nodule , consistent with chronic granulomatous disease. There is nodular liver surface, suspicious for cirrh osis. There is chronic thrombosis of the main portal vein with cavernous transformation and portacava l shunts. Spleen is absent. The pancreas and adrenal glands are unremarkable. There is a 2.2 cm left renal cyst. Gallbladder is surgically absent. There is a wid[place] ventral hernia containing nonobstr ucted bowel. There is slight enlargement of complex cystic lesion of the right adnexa measuring 4.4 x 3.7 cm compared with 4.1 x 3.3 cm greatest axial dimension on prior examination. There is atheroscle rosis of the aorta without aneurysm. There is a second ventral hernia in the upper abdomen anterior t o the liver margin containing fat. IMPRESSION: 1. Persistent wid[place] ventral hernia containing nonobstructed bowel. 2: Slight enlargement of complex right adnexal cyst measuring up to 4.4 cm. Recommend follow-up pelvi c ultrasound. Consider surgical consultation. 3: Probable cirrhosis with chronic portal vein thrombosis and cavernous transformation. Reviewed, dictated and finalized at location A. IMPRESSION: 1. Persistent wid[place]outh ventral hernia containing nonobstructed bowel. 2: Slight enlargement of complex right adnexal cyst measuring up to 4.4 cm. Rec ommend follow-up pelvic ultrasound. Consider surgical consultation. 3: Probable cirrhosis with chronic portal vein thrombosis and cavernous transf ormation.
== END 2021-12-12 08:03 | disposition home or self-care (01) ==
LOC: ANHIMG 08:07
PROVIDERS: PCP Internal Medicine; Visit Provider Internal Medicine
DX: R79.89 Other specified abnormal findings of blood chemistry (principal); K90.9 Intestinal malabsorption, unspecified; R19.7 Diarrhea, unspecified; R10.11 Right upper quadrant pain; K43.9 Ventral hernia without obstruction or gangrene; N83.8 Other noninflammatory disorders of ovary, fallopian tube and broad ligament; R93.2 Abnormal findings on diagnostic imaging of liver and biliary tract
CPT/HCPCS: 74176

== ENCOUNTER 2022-05-08 00:12 | Day surgery (SDC) | payer OTHER, SELFPAY ==
[2022-04-20 13:04] VITALS: BMI 32.3
[2022-05-08 06:26] VITALS: BP 181/63; PULSE 71; RESP 19; TEMP 36.8; O2SAT 98
[2022-05-08] MEDS: LACTATED RINGERS 1,000 ML 150 ML IV CONT (06:41)
--- NOTE | 2022-05-08 06:49 | WPDANESEPPF ---
Anes - Initial Pre Proc Eval Procedure: Operation Date: 05/08/22 07:30 Proposed Procedures p Screening Colonoscopy - Dmitry Bernabe MD Date/Time: 05/08/22 06:49 Surgeon: Dmitry Bernabe MD Pre Op Diagnosis: hx of colon ca Patient Data Age: 66 Gender: F Height: 1.52 m Weight: 73.2 kg Last Vital Signs Temp 36.8 C 05/08/22 06:26 Pulse 71 05/08/22 06:26 Resp 19 05/08/22 06:26 BP 181/63 H 05/08/22 06:26 Pulse Ox 98 05/08/22 06:26 O2 Del Method Room Air 05/08/22 06:26 Allergies Allergy/AdvReac Type Severity Reaction Status Date / Time codeine Allergy Unknown Nausea And Verified 05/08/22 06:25 Vomiting Iodinated Contrast Media Allergy Unknown Anaphylaxis Verified 05/08/22 06:25 iodine Allergy Unknown Unknown Verified 05/08/22 06:25 Penicillins Allergy Unknown Hives Verified 05/08/22 06:25 sumatriptan Allergy Unknown elevated Verified 05/08/22 06:25 blood pressure Contrast Media Allergy Unknown ANAPHYLAXIS Uncoded 05/08/22 06:25 Home Medications Medication Instructions Recorded Confirmed Type aspirin 81 mg chewable tablet 81 mg PO DAILY 02/06/20 04/20/22 History clopidogrel 75 mg tablet 75 mg PO DAILY 02/06/20 04/20/22 History metoprolol tartrate 50 mg tablet 25 mg PO Q12H 02/06/20 04/20/22 History ruxolitinib 5 mg tablet (Jakafi) 5 mg PO DAILY 02/08/22 04/20/22 History Patient hx anesthesia problems: none Family hx anesthesia problems: none Results Review: All pre-operative results and documents have been reviewed as part of the pre-operative evaluation. [facility] Past Medical History Medical History (Updated 05/05/22 @ 14:40 by Khanh Voss DO) COPD (chronic obstructive pulmonary disease) CVA (cerebral vascular accident) History of colon cancer Hyperlipidemia Hypertension Surgical History Surgical History (Updated 05/05/22 @ 14:40 by Khanh Voss DO) History of cholecystectomy Hx of CABG x1 2001 Family History Family History Mother Family history of throat cancer Family history of emphysema Family history of chronic obstructive pulmonary disease Sibling Family history of thyroid disease Hypertension Family history of kidney disease Family history of diabetes mellitus in first degree relative Family history of heart disease in male family member before age 55 Family history of lung cancer Father Acute myocardial infarction Other Diabetes mellitus Family history of cardiovascular disease Social History Social History Smoking packs per day: 1 Smoking cigarettes per day: 20.0 Years smoked: 20 Smoking pack-years: 20.00 Smoking status: Never smoker Smoking end date: 09/24/94 Alcohol intake: current Alcohol use details: seldom Substance use: never Substance use type: does not use Living arrangements: with family Gender identity (if verbalized by the patient): Female Spiritual care concerns: No Anes - Eval Final PreProcedure Day of Procedure 05/08/22 06:49 Patient weight: obese Heart: regular rate and rhythm Lungs: clear to auscultation Airway: Mallampati scale class III Neurological: alert and oriented Last oral intake: >/= 8 hours ASA classification: III Emergent: no Anesthetic plan: proceed Anesthesia type and monitoring: general GIVS and standard monitoring Results Review: All pre-operative results and documents have been reviewed as part of the pre-operative evaluation. Informed Consent: The patient's anesthetic plan and its attendant risks and benefits were discussed with the patient/family/POA. Questions were solicited and answers provided to the satisfaction of the patient/family/POA.
--- NOTE | 2022-05-08 07:22 | PM.IMHP ---
H&P: HPI History of Present Illness Date/Time: 05/08/22 07:22 Chief Complaint: Neoplasia screening. History of colon cancer. Narrative: This is a 66-year-old white female patient presents for screening colonoscopy. Patient has a history of a colon carcinoma. She presents today for surveillance colonoscopy. Patient's current weight appetite and bowel movements are normal. She denies abdominal pain. She has had no bleeding. Family history noncontributory. Previous CT scan is suggested and adnexal mass. She also has felt to have compensated cirrhosis of liver on this CT scan imaging. Patient presents today for screening colonoscopy. Patient reports her current weight appetite and bowel movements are normal. Family history noncontributory. Review of Systems Review of Systems: Review of systems noncontributory. [facility] Past Medical History Medical History (Updated 05/05/22 @ 14:40 by Khanh Voss DO) COPD (chronic obstructive pulmonary disease) CVA (cerebral vascular accident) History of colon cancer Hyperlipidemia Hypertension Surgical History Surgical History (Updated 05/05/22 @ 14:40 by Khanh Voss DO) History of cholecystectomy Hx of CABG x1 2001 Family History Family History Mother Family history of throat cancer Family history of emphysema Family history of chronic obstructive pulmonary disease Sibling Family history of thyroid disease Hypertension Family history of kidney disease Family history of diabetes mellitus in first degree relative Family history of heart disease in male family member before age 55 Family history of lung cancer Father Acute myocardial infarction Other Diabetes mellitus Family history of cardiovascular disease Social History Social History Smoking packs per day: 1 Smoking cigarettes per day: 20.0 Years smoked: 20 Smoking pack-years: 20.00 Smoking status: Never smoker Smoking end date: 09/24/94 Alcohol intake: current Alcohol use details: seldom Substance use: never Substance use type: does not use Living arrangements: with family Gender identity (if verbalized by the patient): Female Spiritual care concerns: No Meds Home Medications and Allergies Home Medications Medication Instructions Recorded Confirmed Type aspirin 81 mg chewable tablet 81 mg PO DAILY 02/06/20 04/20/22 History clopidogrel 75 mg tablet 75 mg PO DAILY 02/06/20 04/20/22 History metoprolol tartrate 50 mg tablet 25 mg PO Q12H 02/06/20 04/20/22 History ruxolitinib 5 mg tablet (Jakafi) 5 mg PO DAILY 02/08/22 04/20/22 History Allergies Allergy/AdvReac Type Severity Reaction Status Date / Time codeine Allergy Unknown Nausea And Verified 05/08/22 06:25 Vomiting Iodinated Contrast Media Allergy Unknown Anaphylaxis Verified 05/08/22 06:25 iodine Allergy Unknown Unknown Verified 05/08/22 06:25 Penicillins Allergy Unknown Hives Verified 05/08/22 06:25 sumatriptan Allergy Unknown elevated Verified 05/08/22 06:25 blood pressure Contrast Media Allergy Unknown ANAPHYLAXIS Uncoded 05/08/22 06:25 Vital Signs Vital Signs - 24 hr 05/08/22 06:26 Temperature 98.2 F Pulse Rate 71 Respiratory Rate 19 Blood Pressure 181/63 H Pulse Oximetry 98 Oxygen Delivery Room Air Exam Narrative: Physical exam reveals patient to be alert. Vital signs stable. HEENT exam is unremarkable. Patient is anicteric. Lungs are clear to auscultation and percussion. Heart is without murmur or extra sounds. Abdomen bowel sounds are present soft nontender with no organomegaly. Digital external rectal exam is normal. Assessment and Plan Assessment and plan (1) History of colon cancer: Code(s): Z85.038 - Personal history of other malignant neoplasm of large intestine Status: Acute Assessment and
[2022-05-08] MEDS: SIMETHICONE ORAL SUSPENSION 20 MG/0.3 ML 30 ML BOTTLE 0.6 ML IRRIGATION (07:35)
[2022-05-08 07:45] VITALS: BP 139/59; PULSE 70; RESP 18; O2SAT 98
[2022-05-08 07:55] VITALS: BP 122/93; PULSE 66; RESP 20; O2SAT 99
[2022-05-08 08:05] VITALS: BP 163/77; PULSE 62; RESP 18; O2SAT 99
== END 2022-05-08 08:12 | disposition home or self-care (01) ==
PROVIDERS: PCP Internal Medicine; Visit Provider Internal Medicine Gastroenterology
PROC: 0DJD8ZZ Inspection of Lower Intestinal Tract, Via Natural or Artificial Opening Endoscopic (ICD-10-PCS; CPT 45378; principal; 2022-05-08 07:30)
DX: Z12.11 Encounter for screening for malignant neoplasm of colon (principal); K64.8 Other hemorrhoids; Z85.038 Personal history of other malignant neoplasm of large intestine; Z98.0 Intestinal bypass and anastomosis status; J44.9 Chronic obstructive pulmonary disease, unspecified; I10 Essential (primary) hypertension; E78.5 Hyperlipidemia, unspecified; Z86.73 Personal history of transient ischemic attack (TIA), and cerebral infarction without residual deficits; Z95.1 Presence of aortocoronary bypass graft; Z79.82 Long term (current) use of aspirin; Z79.02 Long term (current) use of antithrombotics/antiplatelets
CPT/HCPCS: G0105; J2704; J7120

== ENCOUNTER 2022-09-13 07:08 | Outpatient (CLI) | payer OTHER, SELFPAY ==
--- NOTE | ~2022-09-13 | MM_ITS ---
EXAMINATION: MM screening garth BI w tasha HISTORY: Screening TECHNIQUE: Craniocaudal and mediolateral oblique 3-D tomosynthesis images were obtained and synthetic 2-D images were generated. CAD analysis was submitted and interpreted. COMPARISON: Comparison to multiple prior studies sequentially, with oldest reviewed study dated 04/03. BREAST PARENCHYMAL COMPOSITION: There are scattered areas of fibroglandular density. FINDINGS: There is no evidence of suspicious mass, calcification, or architectural distortion to sugg est malignancy in either breast. There has been no suspicious interval change. IMPRESSION: 1. No mammographic evidence of malignancy. 2. Recommend routine screening mammography in one year. BI-RADS Category 1: Negative Reviewed, dictated and finalized at location A. NDSKEEPER SUPERVISOR
== END 2022-09-13 07:09 | disposition home or self-care (01) ==
LOC: ANHIMG 07:09
PROVIDERS: PCP Internal Medicine; Visit Provider Obstetrics & Gynecology
DX: Z12.31 Encounter for screening mammogram for malignant neoplasm of breast (principal)
CPT/HCPCS: 77063; 77067

== ENCOUNTER → 2023-07-04 11:09 | Outpatient (CLI) | payer MEDICARE, SELFPAY ==
--- NOTE | ~2023-07-04 | US_ITS ---
EXAMINATION: US pelvic complete DATE: 07/04/2023 11:30 INDICATION: Complex right ovarian cyst. Comparison:Complex right ovarian cyst TECHNIQUE: Multiple transabdominal and endovaginal sonographic images of the pelvis performed. FINDINGS: The uterus measures 5.4 x 2.1 x 3.1 cm. The endometrial complex measures 4 mm. The right ovary measures 4.7 x 4.2 x 5.6 cm and the left ovary measures 2.5 x 2.3 x 1.5 cm. There are bilateral ovarian cysts, largest measuring 4.5 cm in the right ovary. There are small follicles in e ach ovary. Normal doppler signal in both ovaries. There is no free fluid in the pelvis. There are no abnormal masses seen on either side. IMPRESSION: 1. Bilateral ovarian cysts, largest being a simple cyst in the right ovary measuring 4.5 cm. Reviewed, dictated and finalized at location B. IMPRESSION: 1. Bilateral ovarian cysts, largest being a simple cyst in the right ovary zulma uring 4.5 cm.
== END ==
PROVIDERS: PCP Obstetrics & Gynecology; Visit Provider Obstetrics & Gynecology
DX: N83.291 Other ovarian cyst, right side (principal); N83.292 Other ovarian cyst, left side
CPT/HCPCS: 76856

== ENCOUNTER 2023-07-13 00:18 | Day surgery (SDC) | payer MEDICARE, SELFPAY ==
--- NOTE | 2023-07-12 16:26 | PM.IMHP ---
H&P: HPI History of Present Illness Date/Time: 07/12/23 16:26 Chief Complaint: Complex ovarian cyst Narrative: This is the 67 year female admitted for laparoscopic bilateral salpingo-oophorectomy secondary to a complex right ovarian cyst. She an ultrasound performed which showed right ovary with 4.7x4.2x5.6cm. There is a normal-appearing left ovary. She underwent an OVA1 which puts her at a mildly elevated risk for cancerous change. In light of this being present she opts for laparoscopic BSO. Risks and benefits reviewed in great detail [facility] Past Medical History Medical History Bronchitis COPD (chronic obstructive pulmonary disease) CVA (cerebral vascular accident) History of colon cancer Hyperlipidemia Hypertension Kidney disease Surgical History Surgical History History of appendectomy History of cholecystectomy History of colon resection History of hernia repair Hx of CABG x1 2001 Family History Family History Mother Family history of throat cancer Family history of emphysema Family history of chronic obstructive pulmonary disease Sibling Family history of thyroid disease Hypertension Family history of kidney disease Family history of diabetes mellitus in first degree relative Family history of heart disease in male family member before age 55 Family history of lung cancer Father Acute myocardial infarction Other Diabetes mellitus Family history of cardiovascular disease Social History Social History Smoking packs per day: 1 Smoking cigarettes per day: 20.0 Years smoked: 20 Smoking pack-years: 20.00 Smoking status: Former smoker Tobacco type: cigarettes Smoking end date: 09/24/94 Alcohol intake: current Alcohol use details: seldom Substance use: never Substance use type: does not use Living arrangements: with family Gender identity (if verbalized by the patient): Female Spiritual care concerns: No Meds Home Medications and Allergies Home Medications Medication Instructions Recorded Confirmed Type ruxolitinib 5 mg tablet (Jakafi) 5 mg PO DAILY 02/08/22 07/12/23 History pantoprazole 40 mg tablet,delayed 40 mg PO QAM 12/25/22 07/12/23 History release (Protonix) allopurinol 100 mg tablet 100 mg PO DAILY 07/12/23 07/12/23 History carvedilol 3.125 mg tablet 3.125 mg PO BID 07/12/23 07/12/23 History ferrous sulfate 325 mg (65 mg 325 mg PO DAILY 07/12/23 07/12/23 History iron) tablet (FeroSul) losartan 100 mg tablet 100 mg PO DAILY 07/12/23 07/12/23 History Allergies Allergy/AdvReac Type Severity Reaction Status Date / Time codeine Allergy Unknown Nausea And Verified 12/25/22 08:47 Vomiting Iodinated Contrast Media Allergy Unknown Anaphylaxis Verified 12/25/22 08:47 iodine Allergy Unknown Unknown Verified 12/25/22 08:47 Penicillins Allergy Unknown Hives Verified 12/25/22 08:47 sumatriptan Allergy Unknown elevated Verified 12/25/22 08:47 blood pressure Contrast Media Allergy Unknown ANAPHYLAXIS Uncoded 12/25/22 08:47 Exam Const: General: cooperative, healthy appearing, comfortable and average body habitus Orientation/consciousness: oriented to person, oriented to place and oriented to time Resp: Effort & Inspection: normal respiratory effort Cardio: Rate: regular rate Rhythm: regular rhythm Heart sounds: S1 normal heart sound present and S2 normal heart sound present GI: Inspection: normal to inspection : External Female Exam: normal external appearance Speculum Exam - Vagina: normal appearance of the vagina Bimanual Exam- Adnexa, other: normal adnexae and Adnexal mass present on the right Assessment and Plan Assessment and plan (1) Right ovarian cyst: Code(s): N83.20
[2023-07-12 16:39] VITALS: BMI 25.2
--- NOTE | 2023-07-12 17:03 | PC.NURSE ---
Report to the Outpatient Waiting Room, entrance under the green pavilion located off [facility], at 0730 on 07-13-23. Planned Procedure Time: 0930. Time changes happen often and if your time is changed the preop area will call you the afternoon before. - You and your visitor will be asked to self-screen and do not enter if you have any COVID symptoms. - A mask is optional within the hospital at this time. Patients may have clear liquids (water, carbonated beverages, clear teas, apple juice) until 3 hours prior to surgery with a maximum of 20 ounces. 0630 - No food from midnight until time of surgery - Infants may have breast milk until 4 hours before surgery, formula 6 hours prior to surgery. - Children will be allowed to drink immediately following surgery. If applicable, please bring a bottle or sippy cup to assist with drinking. Juice, water, soda, and popsicles are readily available. For infants on formula, please bring formula the day of surgery. Pacifiers are allowed. Take the following medications with a SIP of water the morning of surgery: carvedilol DO NOT STOP ANY OF YOUR OTHER PRESCRIPTION MEDICATIONS PRIOR TO SURGERY ?EXCEPT THE FOLLOWING Medications to discontinue per physician: N/A Please no make-up, nail welsh, hairspray, perfume, deodorant, or body powder the day of surgery. No jewelry (including any body piercings) or valuables the day of surgery, leave them at home. Please take a shower or bath the night before, or the morning of, surgery with an antibacterial soap. Wear comfortable, loose fitting clothing. Children are encouraged to wear pajamas. - Jewelry must be removed prior to entering the operating room. Rings and piercings that are not removed may be cut off. - The hospital will not accept responsibility for valuables. - Please leave all valuables, including medications, at home the day of surgery. If you are going home after surgery, a licensed dinkey driver must drive you home. - NO public transportation without another adult if you receive anesthesia. - We recommend that an adult stay with you for 24 hours following discharge. - We also recommend that you do not drive, make important decision, drink alcoholic beverages, or take any drugs that were not prescribed by your health care provider for at least 24 hours after your discharge time. For Pediatric surgeries, we recommend two adults accompany the child home. Follow any additional instructions given to you from your surgeon. If you or anyone in your household have experienced Covid symptoms in the past week, please notify your surgeon or the nurse liaison at the phone number below for possible testing. Telephone instructions given to Zulay Georges and asked if any additional questions and then verbalized understanding. Patient advised to call surgeon office or pre surgery nurse liaison [phone] if any additional questions.
[2023-07-13] VITALS (11 sets, daily range): BP systolic 127–168; BP diastolic 57–99; PULSE 75–85; RESP 10–20; TEMP 36.4–36.6; O2SAT 93–100
--- NOTE | 2023-07-13 06:01 | ECG_ITS ---
Measurements Intervals Mcleod Rate: 80 P: 56 WV: 152 QRS: 60 QRSD: 93 T: -20 QT: 390 QTc: 452 Interpretive Statements SINUS RHYTHM POSSIBLE LEFT ATRIAL ENLARGEMENT [-0.1mV P WAVE IN V1/V2] MODERATE T-WAVE ABNORMALITY, CONSIDER ANTEROLATERAL ISCHEMIA [-0.1+ mV T WAVE IN V3- V6] NO PREVIOUS ECG AVAILABLE FOR COMPARISON Electronically Signed On 07-13-2023 13:34:17 CDT by Wilma Villalta MD
--- NOTE | 2023-07-13 06:37 | WPDHPUPDATE1 ---
History and Physical Update Update Date/Time: 07/13/23 06:37 History and Physical has been reviewed, including an updated exam of the patient. There are NO changes in the patient's condition. Risks, benefits, and alternatives have been discussed and questions answered. Patient agrees to proceed with procedure.
[2023-07-13] MEDS: ACETAMINOPHEN 500 MG TABLET 1000 MG PO (07:49)
[2023-07-13 08:22] LABS: Hematocrit 41.8 % (37.0-47.0); Hemoglobin 13.4 g/dL (12.0-15.0)
--- NOTE | 2023-07-13 08:58 | WPDANESEPPF ---
Anes - Initial Pre Proc Eval Procedure: Operation Date: 07/13/23 09:30 Proposed Procedures p Laparoscopic Bilateral Salpingo Oophorectomy - Mook Gavin MD Date/Time: 07/13/23 08:58 Surgeon: Mook Gavin MD Pre Op Diagnosis: right ovarian mass, elevated OVA 1 Patient Data Age: 67 Gender: F Height: 1.52 m Weight: 68.4 kg Last Vital Signs Temp 36.6 C 07/13/23 07:36 Pulse 85 07/13/23 07:36 Resp 20 07/13/23 07:36 BP 166/90 H 07/13/23 07:36 Pulse Ox 93 07/13/23 07:36 O2 Del Method Room Air 07/13/23 07:36 Allergies Allergy/AdvReac Type Severity Reaction Status Date / Time codeine Allergy Unknown Nausea And Verified 07/13/23 07:54 Vomiting Iodinated Contrast Media Allergy Unknown Anaphylaxis Verified 07/13/23 07:54 iodine Allergy Unknown Unknown Verified 07/13/23 07:54 Penicillins Allergy Unknown Hives Verified 07/13/23 07:54 sumatriptan Allergy Unknown elevated Verified 07/13/23 07:54 blood pressure Contrast Media Allergy Unknown ANAPHYLAXIS Uncoded 07/13/23 07:54 Home Medications Medication Instructions Recorded Confirmed Type ruxolitinib 5 mg tablet (Jakafi) 5 mg PO DAILY 02/08/22 07/13/23 History pantoprazole 40 mg tablet,delayed 40 mg PO QAM 12/25/22 07/13/23 History release (Protonix) allopurinol 100 mg tablet 100 mg PO DAILY 07/12/23 07/13/23 History carvedilol 3.125 mg tablet 3.125 mg PO BID 07/12/23 07/13/23 History ferrous sulfate 325 mg (65 mg 325 mg PO DAILY 07/12/23 07/13/23 History iron) tablet (FeroSul) losartan 100 mg tablet 100 mg PO DAILY 07/12/23 07/13/23 History hydrocodone 5 mg-acetaminophen 325 1 tablet PO Q4H PRN pain #20 tabs 07/13/23 Rx mg tablet Laboratory Tests 07/13/23 07:48 Hgb 13.4 g/dL (12.0-15.0) Hct 41.8 % (37.0-47.0) Blood Type A Positive Antibody Screen Pending Patient hx anesthesia problems: none Family hx anesthesia problems: none Results Review: All pre-operative results and documents have been reviewed as part of the pre-operative evaluation. [facility] Past Medical History Medical History Bronchitis COPD (chronic obstructive pulmonary disease) CVA (cerebral vascular accident) History of colon cancer Hyperlipidemia Hypertension Kidney disease Surgical History Surgical History History of appendectomy History of cholecystectomy History of colon resection History of hernia repair Hx of CABG x1 2001 Family History Family History Mother Family history of throat cancer Family history of emphysema Family history of chronic obstructive pulmonary disease Sibling Family history of thyroid disease Hypertension Family history of kidney disease Family history of diabetes mellitus in first degree relative Family history of heart disease in male family member before age 55 Family history of lung cancer Father Acute myocardial infarction Other Diabetes mellitus Family history of cardiovascular disease Social History Social History Smoking packs per day: 1 Smoking cigarettes per day: 20.0 Years smoked: 20 Smoking pack-years: 20.00 Smoking status: Former smoker Tobacco type: cigarettes Second hand tobacco smoke exposure: No Smoking end date: 01/22/02 Additional smoking assessment comments: patient quit smoking when she had a CABG in 2001 Alcohol intake: former Alcohol use details: socially in the past Substance use: current Substance use type: marijuana Other substance usage details: gummies not a regular basis Living arrangements: with family Gender identity (if verbalized by the patient): Female Spiritual care concerns: No Anes - Eval Final PreProcedure Day of Procedure 07/13/23 08:58
--- NOTE | 2023-07-13 10:57 | P.OP_ITS ---
Procedure Note - Detailed Date of Procedure 07/13/23 Pre-op Diagnosis right ovarian mass, elevated OVA 1 Post-op Diagnosis Same Procedure Performed Laparoscopic bilateral salpingo-oophorectomy Surgeon Mook Gavin MD Anesthesia General Indications This is a 67-year-old female with complex right ovarian cyst and a equivocal OVA1. Findings Right ovarian cyst that had a very benign appearance. There was some scar tissue present. Left ovary and tube appeared within normal limits as did the uterus Description of Procedure Patient was prepped draped in the normal sterile fashion placed in the dorsal lithotomy position. Under excellent general trach anesthesia weighted speculum placed in posterior fornix vagina. Anterior lip of cervix grasped with single- tooth tenaculum. Mccoy's cannula inserted the cervix and attached to the single-tooth to be used later for uterine manipulation. The bladder was emptied of clear urine in the weighted speculum was removed. Gloves were changed. A supraumbilical incision made the Veress needle passed in the abdomen. Abdomen filled with CO2 gas [id number]. The 5mm trocar advanced under direct visualization assuring no injury. There was a fair amount of scar tissue the patient placed in Trendelenburg. Suprapubic incision made the 5mm trocar advanced under direct visualization right lower quadrant incision made the 10mm trocar advanced under direct visualization assuring no injury. The right ovary was cystic multi-cystic in nature am had a very benign simple appearance otherwise with no excrescences. The infundibulopelvic structure on the right was skeletonized clamping burning cutting and bringing that to the attachment to the uterus. This was placed in an Endo-Catch and removed through the right lower quadrant. In like fashion the infundibulopelvic structure on the left was skeletonized clamping burning cutting and bringing this to the uterine origin. This was then placed in an Endo-Catch removed through the right lower quadrant incision. Irrigation was undertaken and photo documentation undertaken. No other abnormalities were seen the instruments were withdrawn the patient to recovery in satisfactory condition after closure of the incisions with 4-0 Monocryl glue. Blood loss estimated 25cc all sponge, needle, instrument counts were correct. Were no immediate complications Estimated Blood Loss 25 Drains No Packing No Pathology Yes Complications No immediate complications Condition Stable Disposition PACU
[2023-07-13] MEDS: LACTATED RINGERS 1,000 ML 30 ML IV CONT ×2 (11:07)
[2023-07-13] MEDS: fentaNYL CITRATE INJ (*CRX) 100 MCG/2 ML VIAL 25 MCG IV PUSH ×3 (11:55→12:07)
[2023-07-13] MEDS: oxyCODONE HCL (*CRX) 5 MG TAB IR PO (13:00)
== END 2023-07-13 13:50 | disposition home or self-care (01) ==
PROVIDERS: Anesthesiology; PCP Internal Medicine; Visit Provider Obstetrics & Gynecology
PROC: (CPT 49320; principal; 2023-07-13 09:30)
DX: D27.0 Benign neoplasm of right ovary (principal); E78.5 Hyperlipidemia, unspecified; I10 Essential (primary) hypertension; J44.9 Chronic obstructive pulmonary disease, unspecified; Z79.891 Long term (current) use of opiate analgesic; Z87.891 Personal history of nicotine dependence; Z85.038 Personal history of other malignant neoplasm of large intestine; Z80.1 Family history of malignant neoplasm of trachea, bronchus and lung; Z86.73 Personal history of transient ischemic attack (TIA), and cerebral infarction without residual deficits; Z95.1 Presence of aortocoronary bypass graft
CPT/HCPCS: 58661; 36415; 85014; 85018; 86850; 86900; 86901; 88305; 93005; A9270; J1100; J2371; J2405; J2704; J3010; J7030; J7120

== ENCOUNTER 2023-07-14 11:10 | Inpatient (IN) | payer MEDICARE, SELFPAY ==
[2023-07-14] VITALS (30 sets, daily range): BP systolic 111–157; BP diastolic 77–106; PULSE 81–93; RESP 12–20; TEMP 36.4; O2SAT 86–100
--- NOTE | ~2023-07-14 | XR_ITS ---
Portable chest x-ray Comparison: 07/14/2023 Clinical History: Pneumonia Findings: Scattered small calcified granulomas are present. No acute consolidation evident. Possible minimal central congestive changes. Cardiomediastinal silhouette is stable, status post probable CA BG. Bones and soft tissues are unremarkable. Impression: Possible minimal central congestive changes. Status post probable CABG. Reviewed, dictated and finalized at [facility]. Impression: Possible minimal central congestive changes. Status post probable CABG.
--- NOTE | ~2023-07-14 | NM_ITS ---
EXAMINATION: NM lung vent and perfusion DATE: 07/14/2023 15:28 INDICATION: Hypoxia. Surgery yesterday. TECHNIQUE: The patient breathed 25 mCi xenon-133 for ventilation images. 5.1 mCi Tc-99m MAA was admin istered intravenously for perfusion images. Scintigraphic images of the chest were obtained. COMPARISON: X-ray chest 07/14/2023 FINDINGS: The single breath ventilation image demonstrates normal uptake. Ventilation washout images show no de fects or trapping. Perfusion images show multiple small, moderate, and large sized mismatched perfus ion defects totaling greater than equivalent of 2 or more large mismatched segmental perfusion defect s. IMPRESSION: High probability for pulmonary embolism. Reviewed, dictated and finalized at location K.
--- NOTE | ~2023-07-14 | US_ITS ---
EXAMINATION:US venous doppler LE BI INDICATION:Evaluate for deep venous thrombosis TECHNIQUE: Multiple grayscale, color flow and Doppler images of the right and left lower extremity de ep venous systems were obtained and reviewed. COMPARISON:10/22/2017 FINDINGS: The common femoral, superficial femoral and popliteal veins demonstrate normal respiratory variation, augmentation and compressibility. Color flow is also seen within the posterior tibial, pe roneal, greater saphenous and profunda veins. IMPRESSION: 1: No lower extremity deep venous thrombosis. Reviewed, dictated and finalized at location A.
--- NOTE | ~2023-07-14 | US_ITS ---
EXAMINATION: US carotid duplex BI DATE: 07/15/2023 13:06 INDICATION: CVA TECHNIQUE: Grayscale, color Doppler, and pulsed Doppler images of the cervical carotid arteries were obtained. The degree of vessel stenosis is placed in one of the following categories: normal, <50%, 5 0-69%, >=70% but less than near-occlusion, near-occlusion, or total occlusion. Note that percent sten osis relative to normal distal artery lumen diameter is indirectly measured from velocity measurement s as described by Clement, et al. Radiology 2003; 229:[id number]. Notes: Normal: Peak systolic velocity <125 centimeters/sec and no plaque <50%. Peak systolic velocity <125 ( EDV <40; ICA/CCA PSV ratio <2.0; used these factors only a tandem lesions or low cardiac output or co ntralateral disease) 50-69 %: PSV 125-230 (EDV 40-100; ratio 2-4) >= 70% but less than near occlusion: PSV greater than 230 (EDV > 100; ratio> 4.0) Near Occlusion: PSV that is variable; markedly narrowed lumen Occlusion: Absent flow on color/spectral Doppler and no lumen on monroe scale. COMPARISON: Ultrasound dated 01/08/2021 FINDINGS: RIGHT: The right common carotid artery (CCA) peak systolic velocity (PSV) is 70 cm/s. The right internal car otid artery (ICA) PSV is 82 cm/s. The right ICA end-diastolic velocity (EDV) is 25 cm/s. The right IC A/CCA PSV ratio is 1.7. The external carotid artery (ECA) PSV is 88 cm/s. There is antegrade flow in the right vertebral artery. LEFT: The left CCA PSV is 69 cm/s. The left ICA PSV is 73 cm/s. The left ICA EDV is 28 cm/s. The left ICA/C CA PSV ratio is 1.7. The ECA PSV is 72 cm/s. There is antegrade flow in the left vertebral artery. IMPRESSION: 1. Less than 50% stenosis in the right internal carotid artery by sonographic criteria. 2. Less than 50% stenosis in the left internal carotid artery by sonographic criteria. Reviewed, dictated and finalized at location A. IMPRESSION: 1. Less than 50% stenosis in the right internal carotid artery by sonographic c lillieria. 2. Less than 50% stenosis in the left internal carotid artery by sonographic cr sherine.
--- NOTE | ~2023-07-14 | XR_ITS ---
XR chest 2V 07/14/2023 12:02 Indication: Shortness of breath Procedure: 2 view chest Comparison: Comparison to multiple prior studies sequentially, with oldest reviewed study dated 11/04. Findings: Status post median sternotomy for CABG. Cardiomegaly. Enlarged pulmonary arteries consisten t with pulmonary hypertension. Calcified granuloma left lung base. There are cholecystectomy clips. N o focal air space disease, pulmonary edema, pleural effusion or suspected pneumothorax. Impression: 1: No acute cardiopulmonary disease. Reviewed, dictated and finalized at location A. Impression: 1: No acute cardiopulmonary disease.
--- NOTE | ~2023-07-14 | CT_ITS ---
EXAMINATION: CT diagnostic chest wo con DATE: 07/15/2023 10:33 INDICATION: CHF. Dyspnea. TECHNIQUE: Computed tomography (CT) of the chest was performed without intravenous contrast. The dose -length product was 171.49 mGy-cm. Automated exposure control and iterative reconstruction technique were employed. COMPARISON: CT dated 10/30/2017 FINDINGS: The there is no significant mediastinal lymphadenopathy. There are calcified mediastinal ly mph nodes, consistent with chronic granulomatous disease. Heart size normal. No significant pleural o r pericardial effusion. There is trace free fluid in the perihepatic space. There are cholecystectomy clips. There is atherosclerosis of the aorta and coronary arteries. There is emphysema. There is an irregular shaped masslike density in the right upper lobe measuring 2.7 x 1.3 x 1.2 cm. There are per ipheral bronchograms. No endobronchial lesions. No pneumothorax. There is a 4-5 mm left upper lobe no dule. IMPRESSION: 1. Focal masslike consolidation right upper lobe not appreciated on chest x-ray. Differential diagnos is includes pneumonia and bronchogenic carcinoma. Recommend correlation with pet/CT scan or follow-up CT in 3 months following appropriate therapy. Reviewed, dictated and finalized at location A. IMPRESSION: 1. Focal masslike consolidation right upper lobe not appreciated on chest x-ray . Differential diagnosis includes pneumonia and bronchogenic carcinoma. Recomme nd correlation with pet/CT scan or follow-up CT in 3 months following appropria te therapy.
--- NOTE | 2023-07-14 11:11 | ECG_ITS ---
Measurements Intervals [place] Rate: 88 P: 75 ND: 151 QRS: 29 QRSD: 101 T: -48 QT: 388 QTc: 471 Interpretive Statements SINUS RHYTHM POSSIBLE LEFT ATRIAL ENLARGEMENT [-0.1mV P WAVE IN V1/V2] INDETERMINATE AXIS ST DEVIATION AND MODERATE T-WAVE ABNORMALITY, CONSIDER ANTEROLATERAL ISCHEMIA [-0.1+ mV T WAVE IN V3-V6] ST DEVIATION AND MODERATE T-WAVE ABNORMALITY, CONSIDER INFERIOR ISCHEMIA [-0.1+ mV T WAVE IN II/aVF] COMPARED TO ECG 07/13/2023 07:55:52 NO SIGNIFICANT CHANGES Electronically Signed On 07-15-2023 8:16:03 CDT by Bertrand Yadav M.D.
--- NOTE | 2023-07-14 11:17 | ED.SOB ---
HPI - SOB/Dyspnea General Chief Complaint: Shortness of Breath/Dyspnea <Bren Alvarado PA-C - Last Filed: 07/14/23 14:20> Stated Complaint: SOB <LONI Laws Last Filed: 07/14/23 14:20> Time Seen by Provider: 07/14/23 11:16 <LONI Laws Last Filed: 07/14/23 14:20> Source: patient <LONI Laws Last Filed: 07/14/23 14:20> Mode of arrival: EMS <LONI Laws Last Filed: 07/14/23 14:20> Limitations: no limitations <LONI Laws Last Filed: 07/14/23 14:20> History of Present Illness HPI Narrative: This is a 67 year old female that presents to the ER for shortness of breath. Reports she was walking back to her room and started to feel as though she was going to pass out. Since she has been feeling short of breath. Reports she had a bilateral salpingo-oophorectomy yesterday. Denies fever, chest pain or lower extremity edema. <LONI Laws Last Filed: 07/14/23 14:20> Related Data Home Medications: Home Medications Medication Instructions Recorded Confirmed ruxolitinib 5 mg tablet (Jakafi) 5 mg PO DAILY 02/08/22 07/14/23 pantoprazole 40 mg tablet,delayed 40 mg PO QAM 12/25/22 07/14/23 release (Protonix) allopurinol 100 mg tablet 100 mg PO DAILY 07/12/23 07/14/23 carvedilol 3.125 mg tablet 3.125 mg PO BID 07/12/23 07/14/23 ferrous sulfate 325 mg (65 mg 325 mg PO 3XW 07/12/23 07/14/23 iron) tablet (FeroSul) losartan 100 mg tablet 100 mg PO DAILY 07/12/23 07/14/23 <LONI Laws Last Filed: 07/14/23 14:20> Allergies/Adverse Reactions: Allergies Allergy/AdvReac Type Severity Reaction Status Date / Time codeine Allergy Unknown Nausea And Verified 07/14/23 11:12 Vomiting Iodinated Contrast Media Allergy Unknown Anaphylaxis Verified 07/14/23 11:12 iodine Allergy Unknown Unknown Verified 07/14/23 11:12 Penicillins Allergy Unknown Hives Verified 07/14/23 11:12 sumatriptan Allergy Unknown elevated Verified 07/14/23 11:12 blood pressure Contrast Media Allergy Unknown ANAPHYLAXIS Uncoded 07/14/23 11:12 <Bren Alvarado PA-C - Last Filed: 07/14/23 14:20> Review of Systems Review of Systems: CONSTITUTIONAL: Denies fever CARDIOVASCULAR: Denies chest pain, or edema. RESPIRATORY: Reports dyspnea. Denies cough <Bren Alvarado PA-C - Last Filed: 07/14/23 14:20> All systems reviewed & are unremarkable except as noted in HPI and below <Bren Alvarado PA-C - Last Filed: 07/14/23 14:20> [facility] Past Medical History Medical History: Medical History Bronchitis COPD (chronic obstructive pulmonary disease) CVA (cerebral vascular accident) History of colon cancer Hyperlipidemia Hypertension Kidney disease <Brne Alvarado PA-C - Last Filed: 07/14/23 14:20> Surgical History Surgical History: Surgical History History of appendectomy History of cholecystectomy History of colon resection History of hernia repair Hx of CABG x1 2001 <Bren Alvarado PA-C - Last Filed: 07/14/23 14:20> Family History Family History: Family History Mother Family history of throat cancer Family history of emphysema Family history of chronic obstructive pulmonary disease Sibling Family history of thyroid disease Hypertension Family history of kidney disease Family history of diabetes mellitus in first degree relative Family history of heart disease in male family member before age 55 Family history of lung cancer Father Acute myocardial infarction Other Diabetes mellitus Family history of cardiovascular disease <Bren Alvarado PA-C - Last Filed: 07/14/23 14:20> Social History Social History: Social History Smoking packs per day:
[2023-07-14 11:32] LABS: Basophils Absolute Auto 0.1 K/mm3 (0.0-0.1); Basophils Percent Auto 0.4 % (0.2-1.2); Eosinophils Percent Auto 0.2 % (0-4.4); Hematocrit 42.5 % (37.0-47.0); Hemoglobin 13.4 g/dL (12.0-15.0); Immature Granulocyte Absolute 0.23 K/mm3 (0.00-0.031); Immature Granulocyte Percent A 1.4 % (0-0.5); Lymphocytes Absolute Auto 0.79 K/mm3 (0.9-3.2); Lymphocytes Percent Auto 4.9 % (18.3-44.2); Mean Corpuscular HGB Conc 31.5 g/dl (32-36); Mean Corpuscular Hemoglobin 28.9 pg (26-34); Mean Corpuscular Volume 91.6 fl (80-100); Mean Platelet Volume 11.9 fl (7.4-10.4); Monocytes Absolute Auto 0.9 K/mm3 (0.1-0.6); Monocytes Percent Auto 5.7 % (2.6-8.5); Neutrophils Absolute Auto 14.2 K/mm3 (1.3-6.7); Neutrophils Percent Auto 87.4 % (45.5-73.1); Nucleated Red Blood Cells Absolute Auto 0.2 K/mm3 (0.0-0.012); Platelet Count Result 347 k/mm3 (150-375); Red Blood Count 4.64 M/mm3 (4.2-5.4); Red Cell Distribution Width 21.9 % (11.5-14.5); White Blood Count 16.2 K/mm3 (4.5-10.0)
[2023-07-14 11:43] LABS: Alanine Aminotransferase 23 U/L (6-35); Albumin Level 3.9 g/dL (3.5-5.1); Alkaline Phosphatase 119 U/L (38-126); Anion Gap 11 mmol/L (8-16); Aspartate Amino Transferase 54 U/L (14-36); Bilirubin,Total 0.8 mg/dL (0.2-1.3); Blood Urea Nitrogen 41 mg/dL (7-17); Calcium 9.5 mg/dL (8.4-10.2); Carbon Dioxide 17 mmol/L (22-30); Chloride 110 mmol/L (98-107); Estimated CRCL calculation 14 ml/min; Estimated Glomerular Filt Rate 15; Glucose 119 mg/dL (65-110); Potassium 4.6 mmol/L (3.4-5.0); Sodium 138 mmol/L (137-145)
[2023-07-14 11:44] LABS: INR 1.1; Prothrombin Time 14.6 Seconds (11.1-14.7)
[2023-07-14 11:45] LABS: Partial Thromboplastin Time 26.1 SECONDS (22.3-36.8)
--- NOTE | 2023-07-14 12:06 | PC.NURSE ---
1205 Called chemistry to add on BNP and baseline trop
[2023-07-14] MEDS: SODIUM CHLORIDE 0.9% IV 500 ML 250 ML IV CONT (12:43)
[2023-07-14 13:14] LABS: NT Pro B Type Natriuretic Pept > 30000 pg/mL (19.9-100); Troponin I 0.152 ng/mL (0.000-0.034)
--- NOTE | 2023-07-14 13:25 | PM.IMHP ---
H&P: HPI History of Present Illness Date/Time: 07/14/23 13:25 Chief Complaint: Near-syncope, Narrative: This is a 67 year old female with history of right ovarian mass, status post bilateral salpingo oophorectomy D1, CKD, stage IV, CAD, hypertension, colon cancer status post chemotherapy, liver cirrhosis and esophageal varices due to chemotherapy, splenectomy that presents to the ER for general weakness, near-syncope. Patient was diagnosed diagnosis ovary mass, status post bilateral salpingo-oophorectomy yesterday, patient was discharged home. Today when patient woke up stair patient was feeling weak and feeling like pass out. Patient did not loss consciousness, and patient also denied headache, lightheadedness, focal weakness, chest pain, palpitation, nausea vomiting. Patient also denies diarrhea, fever, chills. Patient has been short of breath in past 1 week, worse with exertion, patient denies orthopnea. Patient came to ED for evaluation, in the ED, patient was found have leukocytosis [id number], afebrile, blood pressure stable. patient was found have hypoxemia, pulse ox 80-90, chest x-ray shows no acute cardiopulmonary issues, elevated BUN creatinine 45/3.2 above baseline, troponin 0.152. V/Q scan is ordered. We admit patient for further evaluation and management Review of Systems Review of Systems: ROS negative except above PMFSH Past Medical History Medical History Bronchitis COPD (chronic obstructive pulmonary disease) CVA (cerebral vascular accident) History of colon cancer Hyperlipidemia Hypertension Kidney disease Surgical History Surgical History History of appendectomy History of cholecystectomy History of colon resection History of hernia repair Hx of CABG x1 2001 Family History Family History Mother Family history of throat cancer Family history of emphysema Family history of chronic obstructive pulmonary disease Sibling Family history of thyroid disease Hypertension Family history of kidney disease Family history of diabetes mellitus in first degree relative Family history of heart disease in male family member before age 55 Family history of lung cancer Father Acute myocardial infarction Other Diabetes mellitus Family history of cardiovascular disease Social History Social History Smoking packs per day: 1 Smoking cigarettes per day: 20.0 Years smoked: 20 Smoking pack-years: 20.00 Smoking status: Former smoker Tobacco type: cigarettes Second hand tobacco smoke exposure: No Smoking end date: 01/22/02 Additional smoking assessment comments: patient quit smoking when she had a CABG in 2001 Alcohol intake: former Alcohol use details: socially in the past Substance use: current Substance use type: marijuana Other substance usage details: gummies not a regular basis Living arrangements: with family Gender identity (if verbalized by the patient): Female Spiritual care concerns: No Meds Home Medications and Allergies Home Medications Medication Instructions Recorded Confirmed Type ruxolitinib 5 mg tablet (Jakafi) 5 mg PO DAILY 02/08/22 07/13/23 History pantoprazole 40 mg tablet,delayed 40 mg PO QAM 12/25/22 07/13/23 History release (Protonix) allopurinol 100 mg tablet 100 mg PO DAILY 07/12/23 07/13/23 History carvedilol 3.125 mg tablet 3.125 mg PO BID 07/12/23 07/13/23 History ferrous sulfate 325 mg (65 mg 325 mg PO DAILY 07/12/23 07/13/23 History iron) tablet (FeroSul) losartan 100 mg tablet 100 mg PO DAILY 07/12/23 07/13/23 History hydrocodone 5 mg-acetaminophen 325 1 tablet PO Q4H PRN pain #20 tabs 07/13/23 Rx mg tablet Allergies Allergy/AdvReac Type Severity Reaction Status Date / Time codeine All
[2023-07-14 13:42] LABS: D Dimer 13.58 ug/mL (<0.48)
--- NOTE | 2023-07-14 15:51 | ADMGEN ---
This patient, Jennifer Georges, was admitted to IMU Room 203-01 at 1540. Patient/family oriented to hospital policies and general routines including ID bracelet, bed and alarms, visiting hours, pain management, procedures, bathroom and other care routines, personal items, smoking policy, room service/diet, and visiting hours. Information on how to activate the Rapid Response Team has been discussed. Patient/Family are encouraged to report perceived risks to care and to ask questions if they do not understand what they are told or what they should do.
--- NOTE | 2023-07-14 15:55 | P.CONNP_ITS ---
Assessment and Plan Assessment and plan (1) ASHA (acute kidney injury): Code(s): N17.9 - Acute kidney failure, unspecified Status: Acute Assessment and Plan: * etiology not clear * prerenal factors versus infection versus something else... * check UA, urine studies, and CPK * recent renal ultrasound already done on 06/25/23 (at [facility]): * The echogenicity of both kidneys is increased. The right kidney is small in size. The right kidney measures 8.0 cm in length, and the' left, 9.5 cm in length. There is no hydronephrosis in either kidney. There are no renal calculi visualized. There are multiple simple cysts in the left kidney, the largest of which measures 2.7 cm. 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 * has had several surgeries in the past and is unclear whether there was renal insult during any of these surgeries... * follows with DR. Dory Reed at [facility] Nephrology (3) Acute hypoxic respiratory failure: Code(s): J96.01 - Acute respiratory failure with hypoxia Status: Acute Assessment and Plan: * as noted in ER with shortness of breth and hypoxia * symptomatically better with supplemental oxygen * elevated D-dimer noted * V/Q scan pending * follow respiratory status (4) Near syncope: Code(s): R55 - Syncope and collapse Status: Acute Assessment and Plan: * history noted with symptoms of almost passing out * work-up/evaluation initiated * follow-up on pending imaging (5) Elevated troponin: Code(s): R79.89 - Other specified abnormal findings of blood chemistry Status: Acute Assessment and Plan: * as noted by evaluation in ER * no EKG changes present * denies any chest pain * Cardiology consulted (6) Hypertension: Code(s): I10 - Essential (primary) hypertension Status: Chronic Assessment and Plan: * reasonable control at this time * remains on losartan currently * follow trend of hemodynamics I will continue to follow the patient with you while she remains hospitalized to make further recommendations as necessary. Thank you for allowing me to participate in the care of this patient. History of Present Illness Reason for Consult Consult date: 07/15/23 Reason for consult: acute renal failure (on chronic kidney disease) Chief Complaint Chief complaint: Acute Respiratory Failure with Hypoxia History of Present Illness Narrative: The patient is a 67-year-old female with a past medical history as outlined below who presented to [facility] Emergency room for further evaluation of generalized weakness in association with a near syncopal episode. The patient was recently diagnosed with ovarian mass and underwent laparoscopic bilateral cell pain show overactive me just recently as an outpatient procedure. She tolerated the procedure reasonably well and was subsequently discharged home. However, early this morning,
--- NOTE | 2023-07-14 15:55 | PM.CNNEP ---
Assessment and Plan Assessment and plan (1) ASHA (acute kidney injury): Code(s): N17.9 - Acute kidney failure, unspecified Status: Acute Assessment and Plan: etiology not clear prerenal factors versus infection versus something else... check UA, urine studies, and CPK recent renal ultrasound already done on 06/25/23 (at [facility]): The echogenicity of both kidneys is increased. The right kidney is small in size. The right kidney measures 8.0 cm in length, and the' left, 9.5 cm in length. There is no hydronephrosis in either kidney. There are no renal calculi visualized. There are multiple simple cysts in the left kidney, the largest of which measures 2.7 cm. 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 has had several surgeries in the past and is unclear whether there was renal insult during any of these surgeries... follows with DR. Dory Reed at [facility] Nephrology (3) Acute hypoxic respiratory failure: Code(s): J96.01 - Acute respiratory failure with hypoxia Status: Acute Assessment and Plan: as noted in ER with shortness of breth and hypoxia symptomatically better with supplemental oxygen elevated D-dimer noted V/Q scan pending follow respiratory status (4) Near syncope: Code(s): R55 - Syncope and collapse Status: Acute Assessment and Plan: history noted with symptoms of almost passing out work-up/evaluation initiated follow-up on pending imaging (5) Elevated troponin: Code(s): R79.89 - Other specified abnormal findings of blood chemistry Status: Acute Assessment and Plan: as noted by evaluation in ER no EKG changes present denies any chest pain Cardiology consulted (6) Hypertension: Code(s): I10 - Essential (primary) hypertension Status: Chronic Assessment and Plan: reasonable control at this time remains on losartan currently follow trend of hemodynamics I will continue to follow the patient with you while she remains hospitalized to make further recommendations as necessary. Thank you for allowing me to participate in the care of this patient. History of Present Illness Reason for Consult Consult date: 07/15/23 Reason for consult: acute renal failure (on chronic kidney disease) Chief Complaint Chief complaint: Acute Respiratory Failure with Hypoxia History of Present Illness Narrative: The patient is a 67-year-old female with a past medical history as outlined below who presented to [facility] Emergency room for further evaluation of generalized weakness in association with a near syncopal episode. The patient was recently diagnosed with ovarian mass and underwent laparoscopic bilateral cell pain show overactive me just recently as an outpatient procedure. She tolerated the procedure reasonably well and was subsequently discharged home. However, early this morning, when she woke up, she felt significantly weak and felt like she was going to pass out. She does not recall actually losing consciousness and reported no symptoms of dizziness, lightheadedness, headache, chest pain, palpitations, nausea, or vomiting. However, she does report shortness of breath over the last week that seems to be worse with exertional activities. Given the generalized weakness and the sensation that she was goi
--- NOTE | 2023-07-14 16:06 | PM.EVENT ---
Event Note Event Note Event Note: V/Q scan reports High probability for pulmonary embolism. As start heparin bolus and drip given current severe renal failure Repeat echocardiogram to evaluate if patient has right heart strain
[2023-07-14] MEDS: HEPARIN SODIUM 5,000 UNITS/ML VIAL 3500 UNITS IV PUSH (17:12)
[2023-07-14] MEDS: HEPARIN SOD/D5W 100 UNITS/ML 25,000 UNITS/250 ML BAG 7 UNITS IV CONT (17:23)
[2023-07-14 17:35] LABS: Basophils Absolute Auto 0.1 K/mm3 (0.0-0.1); Basophils Percent Auto 0.4 % (0.2-1.2); Hematocrit 44.7 % (37.0-47.0); Hemoglobin 13.7 g/dL (12.0-15.0); Immature Granulocyte Absolute 0.17 K/mm3 (0.00-0.031); Immature Granulocyte Percent A 1.1 % (0-0.5); Mean Corpuscular HGB Conc 30.6 g/dl (32-36); Mean Corpuscular Hemoglobin 28.6 pg (26-34); Mean Corpuscular Volume 93.3 fl (80-100); Mean Platelet Volume 12.1 fl (7.4-10.4); Monocytes Absolute Auto 0.8 K/mm3 (0.1-0.6); Monocytes Percent Auto 5.2 % (2.6-8.5); Neutrophils Absolute Auto 13.5 K/mm3 (1.3-6.7); Neutrophils Percent Auto 86.3 % (45.5-73.1); Nucleated Red Blood Cells Absolute Auto 0.2 K/mm3 (0.0-0.012); Nucleated Red Blood Cells Perc 1.3 % (0.0-0.2); Platelet Count Result 341 k/mm3 (150-375); Red Blood Count 4.79 M/mm3 (4.2-5.4); Red Cell Distribution Width 21.9 % (11.5-14.5); White Blood Count 15.7 K/mm3 (4.5-10.0)
[2023-07-14 17:54] LABS: INR 1.1; Prothrombin Time 14.3 Seconds (11.1-14.7)
[2023-07-14 17:55] LABS: Partial Thromboplastin Time 26.2 SECONDS (22.3-36.8)
[2023-07-14] MEDS: HYDROcodone/acetaminophen (*CRX) 5-325 MG TABLET 1 TAB PO (22:02)
[2023-07-14] MEDS: carvediloL 3.125 MG TABLET PO (22:24)
[2023-07-15] VITALS (20 sets, daily range): BP systolic 118–141; BP diastolic 64–85; PULSE 64–86; RESP 12–18; TEMP 36.2–36.8; O2SAT 90–100
[2023-07-15 01:27] LABS: Partial Thromboplastin Time 136.5 SECONDS (22.3-36.8)
--- NOTE | 2023-07-15 01:41 | PC.NURSE ---
PTT resulted at 0130, drawn at 0005, due to be drawn at 2330. Several calls were made to lab and phlebotomy since PTT was due to be drawn at 2330 on 07/14/23. Result 136. Heparin drip placed on hold at 0130. Will resume at 0230 at 500 units/hr with PTT due at 0830.
[2023-07-15 07:47] LABS: Appearance Urine Clear (Clear); Bacteria Urine None Seen /hpf; Bilirubin Urine Negative (Negative); Blood Urine Negative (Negative); Color Urine Yellow (Yellow); Glucose Urine UA Negative (Negative); Ketones Urine Negative (Negative); Leukocyte Esterase Ur Trace LEU/UL (Negative); Nitrate Urine Negative (Negative); Non Pathogenic Casts 0-2; Protein Urine 1+ mg/dL (Negative); RBC Urine 0-2 /hpf (0-2); Specific Grav Ur 1.011 (1.001-1.035); Squamous Epithelial Cell Urine Occasional /hpf (Few); Urobilinogen Urine 0.2 mg/dL (<2.0); pH Urine 5.5 (5.0-9.0)
[2023-07-15 07:52] LABS: Creatinine Urine 92.5 mg/dL; Total Protein Urine Random 63 mg/dL; Ur Ttl Prot Creatinine Ratio 0.68 mg/mg (0-0.20); Urea Random Urine 524 MG/DL
[2023-07-15 07:55] LABS: Add Urine Microscopic? YES
[2023-07-15 07:57] LABS: Sodium Urine Random 30 meq/L
[2023-07-15 08:09] LABS: Eosinophil Urine Rare % (None Seen)
[2023-07-15 08:10] LABS: Urine Eos QC 2nd Tech Confirmed
[2023-07-15 08:44] LABS: Basophils Absolute Auto 0.1 K/mm3 (0.0-0.1); Eosinophils Absolute Auto 0.1 K/mm3 (0-0.3); Eosinophils Percent Auto 0.7 % (0-4.4); Hemoglobin 12.4 g/dL (12.0-15.0); Immature Granulocyte Absolute 0.12 K/mm3 (0.00-0.031); Immature Granulocyte Percent A 1.1 % (0-0.5); Lymphocytes Absolute Auto 1.56 K/mm3 (0.9-3.2); Lymphocytes Percent Auto 13.8 % (18.3-44.2); Mean Corpuscular Hemoglobin 28.7 pg (26-34); Mean Corpuscular Volume 92.6 fl (80-100); Mean Platelet Volume 12.5 fl (7.4-10.4); Monocytes Absolute Auto 0.7 K/mm3 (0.1-0.6); Monocytes Percent Auto 6.3 % (2.6-8.5); Neutrophils Absolute Auto 8.7 K/mm3 (1.3-6.7); Neutrophils Percent Auto 77.1 % (45.5-73.1); Nucleated Red Blood Cells Absolute Auto 0.3 K/mm3 (0.0-0.012); Nucleated Red Blood Cells Perc 2.9 % (0.0-0.2); Platelet Count Result 355 k/mm3 (150-375); Red Blood Count 4.32 M/mm3 (4.2-5.4); Red Cell Distribution Width 21.7 % (11.5-14.5); White Blood Count 11.3 K/mm3 (4.5-10.0)
[2023-07-15 08:57] LABS: Partial Thromboplastin Time 61.4 SECONDS (22.3-36.8)
[2023-07-15 09:03] LABS: Alanine Aminotransferase 21 U/L (6-35); Albumin Level 3.7 g/dL (3.5-5.1); Alkaline Phosphatase 103 U/L (38-126); Anion Gap 9 mmol/L (8-16); Aspartate Amino Transferase 41 U/L (14-36); Bilirubin,Total 0.8 mg/dL (0.2-1.3); Blood Urea Nitrogen 49 mg/dL (7-17); Carbon Dioxide 17 mmol/L (22-30); Chloride 111 mmol/L (98-107); Creatine Kinase 103 U/L (30-135); Estimated CRCL calculation 14 ml/min; Estimated Glomerular Filt Rate 14; Glucose 138 mg/dL (65-110); Phosphorus 4.9 mg/dL (2.5-4.5); Potassium 4.2 mmol/L (3.4-5.0); Sodium 137 mmol/L (137-145)
[2023-07-15] MEDS: carvediloL 3.125 MG TABLET PO ×2 (09:30→21:42)
[2023-07-15] MEDS: HEPARIN SODIUM 5,000 UNITS/ML VIAL 2000 UNITS IV PUSH (09:30)
[2023-07-15] MEDS: allopurinoL 100 MG TABLET PO (09:31)
[2023-07-15] MEDS: LOSARTAN POTASSIUM 100 MG TABLET PO (09:31)
[2023-07-15] MEDS: PANTOPRAZOLE 40 MG TABLET PO (09:31)
--- NOTE | 2023-07-15 10:08 | PM.CNPUL ---
Assessment and Plan Assessment and plan (1) Near syncope: Code(s): R55 - Syncope and collapse Status: Acute (2) Acute hypoxic respiratory failure: Code(s): J96.01 - Acute respiratory failure with hypoxia Status: Acute Assessment and Plan: This 67-year-old female with multiple medical problems presented with weakness and near syncope following an outpatient procedure for ovarian cyst removal. Patient has been diagnosed with a probable pulmonary embolism based on abnormal V/Q scan. She has been on treatment with IV heparin. Currently she is on supplemental oxygen having no new respiratory symptoms. This is a very complex case and the diagnosis of pulmonary embolism cannot be certainly made, given the fact the patient cannot have a CT PA because of renal failure. It appears as though the patient has pulmonary hypertension shown by prominent pulmonary arteries on recent chest x-ray and also on previous chest CT done several years ago. The elevated D-dimer is not helpful as patient had surgery. Patient on physical exam has clear lung and prominent JVD which could be due to chronic right ventricular dysfunction/pulmonary hypertension. In the setting of pulmonary hypertension and emphysema, V/Q scan can be abnormal. I will check with the radiologist regarding positive V/Q scan. Patient stated that she had some shortness of breath 2 days prior to this admission which could indicate possible congestive heart failure or lower respiratory tract infection. The patient is currently hemodynamically stable. Plan: At this point we will continue with IV heparin as ordered. Monitor PT. Will wait for echocardiogram, lower extremity study to exclude DVT. I ordered chest CT to exclude congestive heart failure or lower respiratory tract infection. (3) Esophageal varices in cirrhosis: Code(s): K74.60 - Unspecified cirrhosis of liver; I85.10 - Secondary esophageal varices without bleeding Status: Acute (4) Stage 4 chronic kidney disease: Code(s): N18.4 - Chronic kidney disease, stage 4 (severe) Status: Acute (5) Acute respiratory failure with hypoxemia: Code(s): J96.01 - Acute respiratory failure with hypoxia Status: Acute (6) Elevated troponin: Code(s): R79.89 - Other specified abnormal findings of blood chemistry Status: Acute History of Present Illness History of Present Illness Consult date: 07/15/23 Chief complaint: Acute Respiratory Failure with Hypoxia Narrative: This 67-year-old female was brought in after episode of weakness and near syncope. The patient has multiple medical problems including history of coronary artery disease status post coronary artery bypass grafting many years ago, history of colon cancer status post colectomy and chemotherapy after which she developed chronic kidney disease, history of liver cirrhosis, status post splenectomy. The patient underwent an outpatient procedure yesterday, namely ovarian cyst removal and went home. She stated that she felt weak and while walking at home she almost passed out. She stated that she had had some shortness of breath for 2 days prior to surgery. She denied having chest pain palpitations orthopnea hemoptysis cough or wheezing. When evaluated in the emergency room she had hypoxemia on room air. Chest x-ray showed no active lung disease and EKG was not different from recent EKG done prior to outpatient surgery. BNP was elevated over 30,000, troponin was also elevated. D-dimers were elevated. Because of chronic kidney disease and history of allergies to IV contrast the patient underwent V/Q scan that was read as high probability for pulmonary embolism. Patient has been on on IV heparin for pulmonary embolism. Since yesterday she has had no new respiratory symptoms. Currently she has no orthopnea or shortness of breath. She still on supplemental oxygen 2 liters/minute. Review previous chest imaging studies showed th
--- NOTE | 2023-07-15 11:25 | PM.CNCAR ---
Assessment and Plan Assessment and plan (1) Elevated troponin: Code(s): R79.89 - Other specified abnormal findings of blood chemistry Status: Acute Plan This is a 67-year-old lady who I follow with chronic coronary artery disease she has been stable for many years following EMELINA grafting to her LAD. She was last seen in my office last month at which time she was stable. She has multitude of comorbidities as described above most significant of which is hepatic cirrhosis with portal hypertension and stage 4 chronic kidney disease. She had an episode of weakness and near syncope after going home from outpatient laparoscopic surgery the previous day. Issue of pulmonary embolism has been raised by the findings on a V/Q scan however those findings are probably unreliable if she has significant pulmonary hypertension. The patient cannot safely receive contrast because of her chronic kidney disease. An echocardiogram has been ordered for evaluation for the possibility of pulmonary hypertension. Patient tells me in the room today that she actually had 1 a month ago at [facility]. I will need to try to obtain those records in my EMR and reviewed that study. If that is a good quality exam it is probably not much benefit in repeating another transthoracic echo here. If we need a definitive answer as to the status of a pulmonary hypertension we could consider a right heart catheterization to definitively measure those hemodynamics and that would be reasonable to consider since it does not involve giving her any contrast. Her troponin levels are mildly elevated but they are flat and in a pattern that is consistent with an typical of her degree of chronic kidney disease. I do not see any clinical evidence or reason to be concerned that this represents an acute coronary syndrome. There is no evidence of decompensated left-sided heart failure at this time. I will leave further recommendations when I have had time to review her echocardiogram from [facility] from last month. Mrs. Georges is amenable to right heart catheterization to define her PA pressures if we would like to definitively assess that. Bertrand Yadav MD [facility] History of Present Illness History of Present Illness Consult date/time: 07/15/23 11:25 Reason For Visit: Acute Respiratory Failure with Hypoxia Narrative: This is a 67-year-old lady who I have known for many years with a history of coronary artery disease who was hospitalized here yesterday after an episode of near syncope that occurred at her home. She was actually hospitalized here at [place] the day before as an outpatient for a laparoscopic bilateral salpingo-oophorectomy. She had a ovarian mass which sounds like is suspected to be a benign lesion. She went home as per routine after the procedure. Yesterday while she was at home she states she was walking from 1 room to another and suddenly felt very weak and as though she was going to fall she did not lose consciousness. Her was with her and he grabbed her and helped her down so she did not sustain a fall. She did not have any chest pain pressure or heaviness she did not have any sense of palpitations. She has never had previous episodes of syncope or near syncope. I see this lady for a long time because of a history of coronary artery disease which in the past was treated with percutaneous intervention in her LAD. Unfortunately the LAD lesion would repeatedly restenosed and she was ultimately referred for surgical revascularization she received a single-vessel bypass, and EMELINA to the LAD back in O2 and has done well since then. He was last seen in our office last month and was clinically stable and did not have any significant cardiovascular problems. Unfortunately she has quite a few comorbidities at this time. She has developed hepatic cirrhosis with a history of portal hypertension esophageal varices with a previous variceal bleed several y
--- NOTE | 2023-07-15 11:38 | PM.IMPN ---
Progress Note: A&P Assessment and Plan (1) Acute respiratory failure with hypoxemia: Code(s): J96.01 - Acute respiratory failure with hypoxia Status: Acute (2) Near syncope: Code(s): R55 - Syncope and collapse Status: Acute (3) [id number] renal failure: Code(s): N17.9 - Acute kidney failure, unspecified; N18.9 - Chronic kidney disease, unspecified Status: Acute (4) History of CVA (cerebrovascular accident): Code(s): Z86.73 - Personal history of transient ischemic attack (TIA), and cerebral infarction without residual deficits Status: Acute (5) Stage 4 chronic kidney disease: Code(s): N18.4 - Chronic kidney disease, stage 4 (severe) Status: Acute (6) Esophageal varices in cirrhosis: Code(s): K74.60 - Unspecified cirrhosis of liver; I85.10 - Secondary esophageal varices without bleeding Status: Acute (7) History of colon cancer: Code(s): Z85.038 - Personal history of other malignant neoplasm of large intestine Status: Acute (8) CAD (coronary artery disease): Code(s): I25.10 - Atherosclerotic heart disease of [place] coronary artery without angina pectoris Status: Acute (9) Elevated troponin: Code(s): R79.89 - Other specified abnormal findings of blood chemistry Status: Acute Plan Near syncope Monitor Elevated troponin, Appreciate cardiology input Short of breath Patient has been having shortness in past 1 week, chest x-ray shows no acute cardiopulmonary issues Likely related to PE. Heparin drip, transition to oral if no cardiac plan View obtained echocardiogram Order venous Doppler ASHA on CKD stage IV CKD due to chemotherapy Likely secondary to poor intake Elevated BUN creatinine above baseline, patient has surgery history Gentle normal saline IV fluid 100 mL/hour, patient was on normal saline 250 mL per hour in the ED Follow-up BMP, urinalysis Avoid nephrotoxic medication Consult premium cancellation clerk Hypertension, Continue home medications History of colon cancer on chemotherapy Follow-up with heme oncologist outpatient Subjective Date/time seen: 07/15/23 11:38 Interval history: Shortness of breath is improved. Exam Narrative: GENERAL: Pleasant, in no acute distress. Well-nourished. - EYES: EOMI. Anicteric. - HENT: Moist mucous membranes. - LUNGS: Clear to auscultation bilaterally, no wheezing, rhonchi, or rales. - CARDIOVASCULAR: Regular rate and rhythm. No murmur. No JVD. - ABDOMEN: Soft, tenderness around surgical wound, surgical wound dry and clean,. No palpable masses. - EXTREMITIES: No edema. Peripheral pulses 2+. Non-tender. - NEUROLOGIC: No focal neurological deficits. CN II-XII grossly intact. - PSYCHIATRIC: Awake, Alert and oriented x 3. Appropriate mood and affect. - SKIN: No rashes or lesions. Warm. - LYMPH: No cervical lymphadenopathy. Objective Data Vital Signs Vital Signs: Vital Signs - 24 hr 07/14/23 12:01 07/14/23 12:02 07/14/23 12:21 Temperature 97.6 F Pulse Rate Respiratory Rate Blood Pressure Pulse Oximetry 88 L 95 Oxygen Delivery Room Air Nasal Cannula Oxygen Flow Rate 2 07/14/23 12:00 07/14/23 12:01 07/14/23 12:02 Temperature Pulse Rate 93 92 91 Respiratory Rate 18 16 14 Blood Pressure 128/80 133/84 Pulse Oximetry 88 L 86 L 91 Oxygen Delivery Oxygen Flow Rate 07/14/23 12:15 07/14/23 12:16 07/14/23 13:01 Temperature Pulse Rate 87 87 86 Respiratory Rate 16 12 12 Blood Pressure 134/89 139/97 H Pulse Oximetry 99 98 100 Oxygen Delivery Oxygen Flow Rate 07/14/23 13:32 07/14/23 13:45 07/14/23 14:00 Temperature Pulse Rate 85 86 88 Respiratory Rate 15 15 13 Blood Pressure 112/87 Pulse Oximetry 97 Oxygen Delivery Oxygen Flow Rate 07/14/23 14:15 07/14/23 14:16 07/14/23 14:30 Temperature Pulse Rate 88 87 86 Respiratory Rate 14 16 14 Blood Pressure 144/99 H Pu
--- NOTE | 2023-07-15 11:43 | P.PNNP_ITS ---
Progress Note: A&P Assessment and Plan (1) ASHA (acute kidney injury): Code(s): N17.9 - Acute kidney failure, unspecified Status: Acute Assessment and Plan: * etiology not clear * evaluation to date: * renal ultrasound as noted at OSH (on 06/25/23): The echogenicity of both kidneys is increased. The right kidney is small in size. The right kidney measures 8.0 cm in length, and the' left, 9.5 cm in length. There is no hydronephrosis in either kidney. There are no renal calculi visualized. There are multiple simple cysts in the left kidney, the largest of which measures 2.7 cm. * UA with possible infection -- culture pending * urine electrolytes prerenal * urine eosinophils rare -- possibly related to inflammation/infection * CPK okay * s/p trial of IVFs on admission * given lack of improvement, will hold losartan * follow trend of repeat labs and UOP (2) Stage 4 chronic kidney disease: Code(s): N18.4 - Chronic kidney disease, stage 4 (severe) Status: Acute Assessment and Plan: * baseline creatinine runs ~ 2.1 - 2.5mg/dl * present since at least 2018 (creatinine 1.8mg/dl at that time) if not longer * etiology not entirely clear but suspect related to poorly controlled hypertension, 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 * follows with Dr. Dory Reed at [facility] Nephrology (3) Acute hypoxic respiratory failure: Code(s): J96.01 - Acute respiratory failure with hypoxia Status: Acute Assessment and Plan: * as noted in ER with shortness of breth and hypoxia * symptomatically better with supplemental oxygen * Pulmonary recommendations noted * elevated D-dimer noted * V/Q scan results noted -- accuracy of this difficult to assess given her other pulmonary issues * Chest CT pedning * on heparin gtt * follow respiratory status (4) Near syncope: Code(s): R55 - Syncope and collapse Status: Acute Assessment and Plan: * history noted with symptoms of almost passing out * work-up/evaluation initiated * follow-up on pending imaging (5) Elevated troponin: Code(s): R79.89 - Other specified abnormal findings of blood chemistry Status: Acute Assessment and Plan: * as noted by evaluation in ER * no EKG changes present * denies any chest pain * Cardiology consulted (6) Hypertension: Code(s): I10 - Essential (primary) hypertension Status: Chronic Assessment and Plan: * reasonable control at this time * remains on losartan currently * follow trend of hemodynamics Will continue to follow. Subjective Date/time seen: 07/15/23 11:43 Interval history: Follow-up for acute kidney injury/acute renal failure on chronic kidney disease. At hte time of my visit, she reports improvement in her shortness of breath; seen Pulmonary earlier this morning with recommendations noted; renal function remains about the same by AM labs; no apparent distress noted; no other issues/events overnight. Exam Narrative: General: WD/WN female in NAD Heart: normal S1 and S2; no rub Lungs: clear to auscult
--- NOTE | 2023-07-15 11:43 | PM.PNNEP ---
Progress Note: A&P Assessment and Plan (1) ASHA (acute kidney injury): Code(s): N17.9 - Acute kidney failure, unspecified Status: Acute Assessment and Plan: etiology not clear evaluation to date: renal ultrasound as noted at OSH (on 06/25/23): The echogenicity of both kidneys is increased. The right kidney is small in size. The right kidney measures 8.0 cm in length, and the' left, 9.5 cm in length. There is no hydronephrosis in either kidney. There are no renal calculi visualized. There are multiple simple cysts in the left kidney, the largest of which measures 2.7 cm. 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 follows with Dr. Dory Reed at [facility] Nephrology (3) Acute hypoxic respiratory failure: Code(s): J96.01 - Acute respiratory failure with hypoxia Status: Acute Assessment and Plan: as noted in ER with shortness of breth and hypoxia symptomatically better with supplemental oxygen Pulmonary recommendations noted elevated D-dimer noted V/Q scan results noted -- accuracy of this difficult to assess given her other pulmonary issues Chest CT pedning on heparin gtt follow respiratory status (4) Near syncope: Code(s): R55 - Syncope and collapse Status: Acute Assessment and Plan: history noted with symptoms of almost passing out work-up/evaluation initiated follow-up on pending imaging (5) Elevated troponin: Code(s): R79.89 - Other specified abnormal findings of blood chemistry Status: Acute Assessment and Plan: as noted by evaluation in ER no EKG changes present denies any chest pain Cardiology consulted (6) Hypertension: Code(s): I10 - Essential (primary) hypertension Status: Chronic Assessment and Plan: reasonable control at this time remains on losartan currently follow trend of hemodynamics Will continue to follow. Subjective Date/time seen: 07/15/23 11:43 Interval history: Follow-up for acute kidney injury/acute renal failure on chronic kidney disease. At hte time of my visit, she reports improvement in her shortness of breath; seen Pulmonary earlier this morning with recommendations noted; renal function remains about the same by AM labs; no apparent distress noted; no other issues/events overnight. Exam Narrative: General: WD/WN female in NAD Heart: normal S1 and S2; no rub Lungs: clear to auscultation Abdomen: soft, nontender, nondistended, positive bowel sounds Extremities: no cyanosis or clubbing; no edema Skin: warm and dry Objective Data Vital Signs Vital Signs: Vital Signs Temp Pulse Resp BP Pulse Ox O2 Del Method O2 Flow Rate 07/15/23 11:40 97.8 F 73 18 119/67 100 07/15/23 09:30 73 07/15/23 08:22 93 Nasal Cannula 2 07/15/23 07:53 98 Nasal Cannula 4 07/15/23 08:00 71 07/15/23 07:57 97.7 F 71 17 118/85 96
[2023-07-15 15:40] LABS: Partial Thromboplastin Time 121.4 SECONDS (22.3-36.8)
[2023-07-16] VITALS (16 sets, daily range): BP systolic 134–158; BP diastolic 65–73; PULSE 52–72; RESP 14–18; TEMP 36.6–36.9; O2SAT 95–99
--- NOTE | 2023-07-16 | ECHO_ITS ---
Patient Info Name: Jennifer Georges Age: 67 years : 1955 Gender: Female Ht: 60 in Wt: 154 lbs BSA: 1.75 m2 HR: 56 bpm BP: 147 / 66 mmHg Heart Rhythm: Sinus Rhythm Technical Quality: Good Exam Date: 07/16/2023 1:19 PM Exam Location: [facility] Pulmonary Patient Status: Inpatient Admit Date: 07/15/2023 Staff Ordering Physician: Ryan Whitten MD [place] Operator: Lucila Menon RDCS Attending Provider: Ryan Whitten MD Exam Type: CA echo doppler color flow Study Info Indications - Pain Complete two-dimensional, color flow and Doppler transthoracic echocardiogram is performed. Summary 1. Complete two-dimensional, color flow and Doppler transthoracic echocardiogram is performed. 2. Mild concentric left ventricular hypertrophy with good systolic function. 3. Mild left atrial. 4. Mildly calcified mitral valve annulus. 5. Right ventricular enlargement with moderate hypokinesia. 6. Small amount of tricuspid regurgitation, velocity analysis suggests RV systolic pressure is 59 mmHg. Left Ventricle Left ventricular chamber dimension is normal. Left ventricular systolic function is normal, estimated at 65-70%. There is mild concentric increased left ventricular wall thickness. The left ventricular diastolic function is grade I diastolic dysfunction. Right Ventricle Right ventricular chamber dimension is moderately enlarged. Right ventricular systolic function is reduced. Left Atria Left atrial chamber dimension is mildly enlarged. Right Atria Right atrial chamber dimension is normal. Aortic Valve The aortic valve is trileaflet. There is mild aortic valve sclerosis. Pulmonic Valve The pulmonic valve is normal. There is mild pulmonic regurgitation. Mitral Valve The mitral valve has normal leaflets. The mitral valve annulus is mildly calcified. Tricuspid Valve The tricuspid valve leaflets are normal. There is mild tricuspid valve regurgitation. Moderate pulmonary hypertension, estimated pulmonary arterial systolic pressure is 59 mmHg. Pericardium/Pleural The pericardium appears normal. Aorta The aortic root size at the sinus of Valsalva is normal. Left Ventricular Outflow Tract Name Value Normal LVOT 2D LVOT Diameter 2.0 cm LVOT Doppler LVOT Peak Gradient 6 mmHg LVOT Mean Gradient 3 mmHg LVOT VTI 23 cm LVOT VTI/AV VTI Ratio 0.6 LVOT Stroke Volume 70 ml LVOT CO 4.3 l/min LVOT CI 2.5 l/min/m2 Pulmonic Valve Name Value Normal RVOT Doppler RVOT Peak Gradient 0 mmHg PV Doppler PV Peak Gradient 3 mmHg Mitral Valve Name
[2023-07-16 01:49] LABS: Partial Thromboplastin Time 47.7 SECONDS (22.3-36.8)
[2023-07-16] MEDS: HEPARIN SODIUM 5,000 UNITS/ML VIAL 4000 UNITS IV PUSH (02:09)
[2023-07-16 04:47] LABS: Basophils Absolute Auto 0.2 K/mm3 (0.0-0.1); Basophils Percent Auto 1.3 % (0.2-1.2); Eosinophils Absolute Auto 0.2 K/mm3 (0-0.3); Eosinophils Percent Auto 1.8 % (0-4.4); Hematocrit 37.5 % (37.0-47.0); Hemoglobin 11.8 g/dL (12.0-15.0); Immature Granulocyte Absolute 0.16 K/mm3 (0.00-0.031); Immature Granulocyte Percent A 1.4 % (0-0.5); Lymphocytes Absolute Auto 1.62 K/mm3 (0.9-3.2); Lymphocytes Percent Auto 13.9 % (18.3-44.2); Mean Corpuscular HGB Conc 31.5 g/dl (32-36); Mean Corpuscular Hemoglobin 28.8 pg (26-34); Mean Corpuscular Volume 91.5 fl (80-100); Mean Platelet Volume 11.9 fl (7.4-10.4); Monocytes Absolute Auto 1.2 K/mm3 (0.1-0.6); Monocytes Percent Auto 9.9 % (2.6-8.5); Neutrophils Absolute Auto 8.4 K/mm3 (1.3-6.7); Neutrophils Percent Auto 71.7 % (45.5-73.1); Nucleated Red Blood Cells Absolute Auto 0.6 K/mm3 (0.0-0.012); Platelet Count Result 324 k/mm3 (150-375); Red Cell Distribution Width 21.8 % (11.5-14.5); White Blood Count 11.7 K/mm3 (4.5-10.0)
[2023-07-16 05:02] LABS: Alanine Aminotransferase 18 U/L (6-35); Albumin Level 3.2 g/dL (3.5-5.1); Alkaline Phosphatase 97 U/L (38-126); Anion Gap 8 mmol/L (8-16); Aspartate Amino Transferase 37 U/L (14-36); Bilirubin,Total 0.6 mg/dL (0.2-1.3); Blood Urea Nitrogen 48 mg/dL (7-17); Calcium 8.8 mg/dL (8.4-10.2); Carbon Dioxide 17 mmol/L (22-30); Chloride 114 mmol/L (98-107); Estimated CRCL calculation 15 ml/min; Estimated Glomerular Filt Rate 16; Glucose 92 mg/dL (65-110); Phosphorus 3.5 mg/dL (2.5-4.5); Potassium 4.5 mmol/L (3.4-5.0); Sodium 139 mmol/L (137-145)
--- NOTE | 2023-07-16 05:39 | PC.NURSE ---
Ptt was ordered and timed to be drawn at 0815 on 07/17/23 per Heparin protocol. cath lab tech Leann Luna edited the order to be drawn at 0426 without speaking to this RN. I spoke with Lou in the lab and she will unreceive the speciman and schedule to redraw at 0815.
--- NOTE | 2023-07-16 06:59 | PCCARD ---
Echocardiogram cancelled per Dr. Yadav.
[2023-07-16 08:39] LABS: Partial Thromboplastin Time 121.6 SECONDS (22.3-36.8)
[2023-07-16] MEDS: allopurinoL 100 MG TABLET PO (08:49)
[2023-07-16] MEDS: PANTOPRAZOLE 40 MG TABLET PO (08:49)
[2023-07-16] MEDS: carvediloL 3.125 MG TABLET PO ×2 (08:50→20:32)
--- NOTE | 2023-07-16 09:00 | PM.PNPUL ---
Progress Note: A&P Assessment and Plan (1) Acute respiratory failure with hypoxemia: Code(s): J96.01 - Acute respiratory failure with hypoxia Status: Acute (2) Acute hypoxic respiratory failure: Code(s): J96.01 - Acute respiratory failure with hypoxia Status: Acute (3) Pulmonary embolism: Code(s): I26.99 - Other pulmonary embolism without acute cor pulmonale Status: Acute Assessment and Plan: This 67-year-old female with multiple medical problems presented with weakness and near syncope following an outpatient procedure for ovarian cyst removal.? Patient has been diagnosed with probable pulmonary embolism based on abnormal V/Q scan.? The V/Q scan was read as high probability for pulmonary embolism. She could not have a CT PA because of end-stage renal failure. I discussed the results of V/Q scan with the radiologist Dr. Luis who interpreted the study. Specifically asked Dr. Luis whether this is a false-positive V/Q study, given the mild emphysematous changes on chest CT and also the possibility that she may have pulmonary hypertension. Dr. Luis told me that she had multiple defects that make the probability of a pulmonary embolism highly likely. Patient's multiple comorbidities like cirrhosis with history of hemorrhage related to esophageal varices, chronic renal failure, increase the risk for more bleeding episodes if she goes on intermediate project manager treatment with anticoagulants for pulmonary embolism. Had a lengthy discussion with the patient regarding risk of significant bleeding related to chronic anticoagulation, and that she may be a candidate for inferior vena cava filter interruption. Patient wanted to be transferred to [facility] where she goes for most of her medical needs tp undergo evaluation for inferior vena cava filter interruption. The case was discussed with the hospitalist who will initiate the process transfer. (4) Wulca-xa-xasmouv renal failure: Code(s): N17.9 - Acute kidney failure, unspecified; N18.9 - Chronic kidney disease, unspecified Status: Acute (5) Near syncope: Code(s): R55 - Syncope and collapse Status: Acute (6) longterm (current) use of antithrombotics/antiplatelets: Code(s): Z79.02 - longterm (current) use of antithrombotics/antiplatelets Status: Acute (7) Stage 4 chronic kidney disease: Code(s): N18.4 - Chronic kidney disease, stage 4 (severe) Status: Acute (8) Esophageal varices in cirrhosis: Code(s): K74.60 - Unspecified cirrhosis of liver; I85.10 - Secondary esophageal varices without bleeding Status: Acute (9) History of colon cancer: Code(s): Z85.038 - Personal history of other malignant neoplasm of large intestine Status: Acute (10) Abnormal CT scan: Code(s): R93.89 - Abnormal findings on diagnostic imaging of other specified body structures Status: Acute Assessment and Plan: Chest CT showed mild emphysematous changes prominent pulmonary arteries and new nodular infiltrate in right upper lobe. Etiology of right upper lobe infiltrate unclear. Differential diagnosis includes pneumonia and less likely malignancy. The patient was informed about the right lung infiltrate. She will need further follow-up at [facility] where she will be transferred. Subjective Date/time seen: 07/16/23 09:00 Interval history: Patient has had no new respiratory symptoms. When asked she stated that she feels better today. Continues to have mild cough no sputum production. She remains on supplemental oxygen. She has no shortness of breath. She remains on IV heparin for pulmonary embolism. Upon further questioning the patient stated that she gets most of her medical care at [facility]. In fact she is followed by GI Nephrology and Hematology services at [facility]. 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 Patient is followed
--- NOTE | 2023-07-16 10:20 | P.PNNP_ITS ---
Progress Note: A&P Assessment and Plan (1) ASHA (acute kidney injury): Code(s): N17.9 - Acute kidney failure, unspecified Status: Acute Assessment and Plan: * etiology not clear * evaluation to date: * renal ultrasound as noted at [facility] (on 06/25/23): The echogenicity of both kidneys is increased. The right kidney is small in size. The right kidney measures 8.0 cm in length, and the' left, 9.5 cm in length. There is no hydronephrosis in either kidney. There are no renal calculi visualized. There are multiple simple cysts in the left kidney, the largest of which measures 2.7 cm. * UA with possible infection -- culture pending * urine electrolytes prerenal * urine eosinophils rare -- possibly related to inflammation/infection? 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 * follows with Dr. Dory Reed at [facility] Nephrology (3) Acute hypoxic respiratory failure: Code(s): J96.01 - Acute respiratory failure with hypoxia Status: Acute Assessment and Plan: * as noted in ER with shortness of breth and hypoxia * symptomatically better with supplemental oxygen * Pulmonary recommendations noted * elevated D-dimer noted * V/Q scan results noted -- accuracy of this difficult to assess given her other pulmonary issues * Chest CT results noted * on heparin gtt * follow respiratory status (4) Near syncope: Code(s): R55 - Syncope and collapse Status: Acute Assessment and Plan: * history noted with symptoms of almost passing out * evaluation and imaging noted * continue supportive therapy (5) Elevated troponin: Code(s): R79.89 - Other specified abnormal findings of blood chemistry Status: Acute Assessment and Plan: * as noted by evaluation in ER * no EKG changes present * denies any chest pain * Cardiology recommendations noted (6) Hypertension: Code(s): I10 - Essential (primary) hypertension Status: Chronic Assessment and Plan: * elevated today * presumably due to being off losartan * follow trend of hemodynamics Noted plans for possible transfer to [facility] as she receives care there from Hem/Onc, Nephrology, and GI. Will continue to follow. Subjective Date/time seen: 07/16/23 10:20 Interval history: Follow-up for acute kidney injury/acute renal failure on chronic kidney disease. Respiratory status remains stable -- denies any shortness of breath but still requiring supplemental oxygen; remains on heparin gtt due to concerns for possible pulmonary embolus; renal function a bit better since admission; Pulmon magdiel recommendations noted. Exam Narrative: Nitza
--- NOTE | 2023-07-16 10:20 | PM.PNNEP ---
Progress Note: A&P Assessment and Plan (1) ASHA (acute kidney injury): Code(s): N17.9 - Acute kidney failure, unspecified Status: Acute Assessment and Plan: etiology not clear evaluation to date: renal ultrasound as noted at [facility] (on 06/25/23): The echogenicity of both kidneys is increased. The right kidney is small in size. The right kidney measures 8.0 cm in length, and the' left, 9.5 cm in length. There is no hydronephrosis in either kidney. There are no renal calculi visualized. There are multiple simple cysts in the left kidney, the largest of which measures 2.7 cm. UA with possible infection -- culture pending urine electrolytes prerenal urine eosinophils rare -- possibly related to inflammation/infection? 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 follows with Dr. Dory Reed at [facility] Nephrology (3) Acute hypoxic respiratory failure: Code(s): J96.01 - Acute respiratory failure with hypoxia Status: Acute Assessment and Plan: as noted in ER with shortness of breth and hypoxia symptomatically better with supplemental oxygen Pulmonary recommendations noted elevated D-dimer noted V/Q scan results noted -- accuracy of this difficult to assess given her other pulmonary issues Chest CT results noted on heparin gtt follow respiratory status (4) Near syncope: Code(s): R55 - Syncope and collapse Status: Acute Assessment and Plan: history noted with symptoms of almost passing out evaluation and imaging noted continue supportive therapy (5) Elevated troponin: Code(s): R79.89 - Other specified abnormal findings of blood chemistry Status: Acute Assessment and Plan: as noted by evaluation in ER no EKG changes present denies any chest pain Cardiology recommendations noted (6) Hypertension: Code(s): I10 - Essential (primary) hypertension Status: Chronic Assessment and Plan: elevated today presumably due to being off losartan follow trend of hemodynamics Noted plans for possible transfer to [facility] as she receives care there from Hem/Onc, Nephrology, and GI. Will continue to follow. Subjective Date/time seen: 07/16/23 10:20 Interval history: Follow-up for acute kidney injury/acute renal failure on chronic kidney disease. Respiratory status remains stable -- denies any shortness of breath but still requiring supplemental oxygen; remains on heparin gtt due to concerns for possible pulmonary embolus; renal function a bit better since admission; Pulmonary recommendations noted. Exam Narrative: General: WD/WN female in NAD Heart: normal S1 and S2; no rub Lungs: clear to auscultation Abdomen: soft, nontender, nondistended, positive bowel sounds Extremities: no cyanosis or clubbing; no edema Skin: warm and intact Objective Data Vital Signs Vital Signs: Vital Signs Temp Pulse Resp BP Pulse Ox O2 Del Method O2 Flow Rate 07/16/23 08:50 64 07/16/23 08:00 97.8 F 70 16 158/69 H 99 07/16/23 06:00 61 07/16/23 04:00 97 Nasal Cannula 2
[2023-07-16] MEDS: CEFDINIR 300 MG CAPSULE PO ×2 (10:41→20:32)
[2023-07-16] MEDS: AZITHROMYCIN 250 MG TABLET 500 MG PO (10:41)
--- NOTE | 2023-07-16 11:01 | PHAR ---
HOME MED VERIFIED = [facility] RX [id number] JAKAFI 5 MG TABS. TAKE 1 TAB ONCE A DAY.
--- NOTE | 2023-07-16 11:17 | PM.IMPN ---
Progress Note: A&P Assessment and Plan (1) Acute respiratory failure with hypoxemia: Code(s): J96.01 - Acute respiratory failure with hypoxia Status: Acute (2) Near syncope: Code(s): R55 - Syncope and collapse Status: Acute (3) Lolno-kw-uuuputp renal failure: Code(s): N17.9 - Acute kidney failure, unspecified; N18.9 - Chronic kidney disease, unspecified Status: Acute (4) History of CVA (cerebrovascular accident): Code(s): Z86.73 - Personal history of transient ischemic attack (TIA), and cerebral infarction without residual deficits Status: Acute (5) Stage 4 chronic kidney disease: Code(s): N18.4 - Chronic kidney disease, stage 4 (severe) Status: Acute (6) Esophageal varices in cirrhosis: Code(s): K74.60 - Unspecified cirrhosis of liver; I85.10 - Secondary esophageal varices without bleeding Status: Acute (7) History of colon cancer: Code(s): Z85.038 - Personal history of other malignant neoplasm of large intestine Status: Acute (8) CAD (coronary artery disease): Code(s): I25.10 - Atherosclerotic heart disease of [place] coronary artery without angina pectoris Status: Acute (9) Elevated troponin: Code(s): R79.89 - Other specified abnormal findings of blood chemistry Status: Acute Plan Near syncope Monitor Elevated troponin, Appreciate cardiology input Short of breath Patient has been having shortness in past 1 week, chest x-ray shows no acute cardiopulmonary issues Likely related to PE. Heparin drip, transition to oral if no cardiac plan View obtained echocardiogram Order venous Doppler ASHA on CKD stage IV CKD due to chemotherapy Likely secondary to poor intake Elevated BUN creatinine above baseline, patient has surgery history Gentle normal saline IV fluid 100 mL/hour, patient was on normal saline 250 mL per hour in the ED Follow-up BMP, urinalysis Avoid nephrotoxic medication Consult account leader Hypertension, Continue home medications History of colon cancer on chemotherapy Follow-up with heme oncologist outpatient Subjective Date/time seen: 07/16/23 11:17 Interval history: No new complaints. Off oxygen Exam Narrative: GENERAL: Pleasant, in no acute distress. Well-nourished. - EYES: EOMI. Anicteric. - HENT: Moist mucous membranes. - LUNGS: Clear to auscultation bilaterally, no wheezing, rhonchi, or rales. - CARDIOVASCULAR: Regular rate and rhythm. No murmur. No JVD. - ABDOMEN: Soft, tenderness around surgical wound, surgical wound dry and clean,. No palpable masses. - EXTREMITIES: No edema. Peripheral pulses 2+. Non-tender. - NEUROLOGIC: No focal neurological deficits. CN II-XII grossly intact. - PSYCHIATRIC: Awake, Alert and oriented x 3. Appropriate mood and affect. - SKIN: No rashes or lesions. Warm. - LYMPH: No cervical lymphadenopathy. Objective Data Vital Signs Vital Signs: Vital Signs - 24 hr 07/15/23 11:45 07/15/23 16:00 07/15/23 12:00 Temperature 97.8 F 97.5 F L Pulse Rate 73 64 Respiratory Rate 18 12 Blood Pressure 119/67 131/72 Pulse Oximetry 100 97 98 Oxygen Delivery Nasal Cannula Oxygen Flow Rate 4 07/15/23 16:00 07/15/23 12:00 07/15/23 14:00 Temperature Pulse Rate 83 86 Respiratory Rate Blood Pressure Pulse Oximetry 98 Oxygen Delivery Nasal Cannula Oxygen Flow Rate 4 07/15/23 16:00 07/15/23 18:00 07/15/23 20:00 Temperature 98.3 F Pulse Rate 65 72 64 Respiratory Rate 16 Blood Pressure 141/64 H Pulse Oximetry 97 Oxygen Delivery Oxygen Flow Rate 07/15/23 21:42 07/15/23 20:00 07/15/23 20:00 Temperature Pulse Rate 67 68 Respiratory Rate Blood Pressure Pulse Oximetry 97 Oxygen Delivery Nasal Cannula Oxygen Flow Rate 2 07/15/23 22:00 07/16/23 00:00 07/16/23 00:00 Temperature Pulse Rate 65 65 Respiratory Rate Blood Pressure Pulse Oximetry 97 O
[2023-07-16 12:29] LABS: RSV RNA, RT-PCR Negative (Negative); SARS-CoV-2 RNA PCR Negative (Negative)
[2023-07-16] MEDS: FERROUS SULFATE 325 MG TABLET DR BY MOUTH (13:55)
[2023-07-16 14:46] LABS: Partial Thromboplastin Time 57.4 SECONDS (22.3-36.8)
[2023-07-16] MEDS: HEPARIN SODIUM 5,000 UNITS/ML VIAL 2000 UNITS IV PUSH (15:39)
[2023-07-16] MEDS: HEPARIN SOD/D5W 100 UNITS/ML 25,000 UNITS/250 ML BAG 6 UNITS IV CONT (15:41)
[2023-07-16 21:59] LABS: Partial Thromboplastin Time 86.4 SECONDS (22.3-36.8)
--- NOTE | 2023-07-16 22:56 | PC.NURSE ---
Spoke with [facility]. No bed available at this time. Patient condition update given. [phone]
[2023-07-17] VITALS (18 sets, daily range): BP systolic 141–178; BP diastolic 65–86; PULSE 57–73; RESP 16–20; TEMP 36.4–37; O2SAT 94–99
[2023-07-17 05:16] LABS: Basophils Absolute Auto 0.1 K/mm3 (0.0-0.1); Basophils Percent Auto 1.2 % (0.2-1.2); Eosinophils Absolute Auto 0.3 K/mm3 (0-0.3); Eosinophils Percent Auto 2.5 % (0-4.4); Hematocrit 38.3 % (37.0-47.0); Hemoglobin 12.2 g/dL (12.0-15.0); Immature Granulocyte Absolute 0.18 K/mm3 (0.00-0.031); Immature Granulocyte Percent A 1.6 % (0-0.5); Lymphocytes Absolute Auto 2.04 K/mm3 (0.9-3.2); Lymphocytes Percent Auto 17.9 % (18.3-44.2); Mean Corpuscular HGB Conc 31.9 g/dl (32-36); Mean Corpuscular Hemoglobin 28.6 pg (26-34); Mean Corpuscular Volume 89.9 fl (80-100); Mean Platelet Volume 12.1 fl (7.4-10.4); Monocytes Absolute Auto 1.2 K/mm3 (0.1-0.6); Monocytes Percent Auto 10.9 % (2.6-8.5); Neutrophils Absolute Auto 7.5 K/mm3 (1.3-6.7); Neutrophils Percent Auto 65.9 % (45.5-73.1); Nucleated Red Blood Cells Absolute Auto 0.9 K/mm3 (0.0-0.012); Nucleated Red Blood Cells Perc 8.2 % (0.0-0.2); Platelet Count Result 366 k/mm3 (150-375); Red Blood Count 4.26 M/mm3 (4.2-5.4); Red Cell Distribution Width 21.4 % (11.5-14.5); White Blood Count 11.4 K/mm3 (4.5-10.0)
[2023-07-17 05:26] LABS: Alanine Aminotransferase 17 U/L (6-35); Albumin Level 3.3 g/dL (3.5-5.1); Alkaline Phosphatase 106 U/L (38-126); Anion Gap 8 mmol/L (8-16); Aspartate Amino Transferase 30 U/L (14-36); Bilirubin,Total 0.9 mg/dL (0.2-1.3); Blood Urea Nitrogen 39 mg/dL (7-17); Carbon Dioxide 16 mmol/L (22-30); Chloride 114 mmol/L (98-107); Estimated CRCL calculation 16 ml/min; Estimated Glomerular Filt Rate 18; Glucose 95 mg/dL (65-110); Phosphorus 3.2 mg/dL (2.5-4.5); Potassium 3.9 mmol/L (3.4-5.0); Sodium 138 mmol/L (137-145)
[2023-07-17 05:29] LABS: Partial Thromboplastin Time 80.7 SECONDS (22.3-36.8)
[2023-07-17] MEDS: CEFDINIR 300 MG CAPSULE PO ×2 (08:14→19:57)
[2023-07-17] MEDS: carvediloL 3.125 MG TABLET PO ×2 (08:14→19:57)
[2023-07-17] MEDS: AZITHROMYCIN 250 MG TABLET 500 MG PO (08:14)
[2023-07-17] MEDS: PANTOPRAZOLE 40 MG TABLET PO (08:15)
[2023-07-17] MEDS: allopurinoL 100 MG TABLET PO (08:16)
--- NOTE | 2023-07-17 10:02 | PM.PNNEP ---
Progress Note: A&P Assessment and Plan (1) ASHA (acute kidney injury): Code(s): N17.9 - Acute kidney failure, unspecified Status: Acute Assessment and Plan: etiology not clear perhaps random fluctuations in baseline renal function(?) evaluation to date: renal ultrasound as noted at [facility] (on 06/25/23): The echogenicity of both kidneys is increased. The right kidney is small in size. The right kidney measures 8.0 cm in length, and the' left, 9.5 cm in length. There is no hydronephrosis in either kidney. There are no renal calculi visualized. There are multiple simple cysts in the left kidney, the largest of which measures 2.7 cm. UA with possible infection -- however, culture negative urine electrolytes prerenal urine eosinophils rare -- possibly related to inflammation? 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 follows with Dr. Dory Reed at [facility] Nephrology (3) Acute hypoxic respiratory failure: Code(s): J96.01 - Acute respiratory failure with hypoxia Status: Acute Assessment and Plan: as noted in ER with shortness of breth and hypoxia symptomatically better with supplemental oxygen Pulmonary recommendations noted elevated D-dimer noted V/Q scan results noted -- accuracy of this difficult to assess given her other pulmonary issues Chest CT results noted on heparin gtt follow respiratory status (4) Near syncope: Code(s): R55 - Syncope and collapse Status: Acute Assessment and Plan: history noted with symptoms of almost passing out evaluation and imaging noted continue supportive therapy (5) Elevated troponin: Code(s): R79.89 - Other specified abnormal findings of blood chemistry Status: Acute Assessment and Plan: as noted by evaluation in ER no EKG changes present denies any chest pain Cardiology recommendations noted (6) Hypertension: Code(s): I10 - Essential (primary) hypertension Status: Chronic Assessment and Plan: elevated today presumably due to being off losartan follow trend of hemodynamics Possible transfer to [facility] (?) as she receives care there from Hem/Onc, Nephrology, and GI. Will continue to follow. Subjective Date/time seen: 07/17/23 10:02 Interval history: Follow-up for acute kidney injury/acute renal failure on chronic kidney disease. Overall, she states she feels reasonably well; breathing/respiratory status continues to improve and she has been weaned off supplemental oxygen; renal function seems to be doing better as well; no apparent distress noted. Exam Narrative: General: WD/WN female in NAD Heart: normal S1 and S2; no rub Lungs: clear to auscultation Abdomen: soft, nontender, nondistended, positive bowel sounds Extremities: no cyanosis or clubbing; no edema Skin: no rash Objective Data Vital Signs Vital Signs: Vital Signs Temp Pulse Resp BP Pulse Ox O2 Del Method 07/17/23 10:00 61 07/17/23 08:30 94 Room Air 07/17/23 08:30 63 07/17/23 08:00 98.3 F 63
--- NOTE | 2023-07-17 10:02 | P.PNNP_ITS ---
Progress Note: A&P Assessment and Plan (1) ASHA (acute kidney injury): Code(s): N17.9 - Acute kidney failure, unspecified Status: Acute Assessment and Plan: * etiology not clear * perhaps random fluctuations in baseline renal function(?) * evaluation to date: * renal ultrasound as noted at [facility] (on 06/25/23): The echogenicity of both kidneys is increased. The right kidney is small in size. The right kidney measures 8.0 cm in length, and the' left, 9.5 cm in length. There is no hydronephrosis in either kidney. There are no renal calculi visualized. There are multiple simple cysts in the left kidney, the largest of which measures 2.7 cm. * UA with possible infection -- however, culture negative * urine electrolytes prerenal * urine eosinophils rare -- possibly related to inflammation? 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 * follows with Dr. Dory Reed at [facility] Nephrology (3) Acute hypoxic respiratory failure: Code(s): J96.01 - Acute respiratory failure with hypoxia Status: Acute Assessment and Plan: * as noted in ER with shortness of breth and hypoxia * symptomatically better with supplemental oxygen * Pulmonary recommendations noted * elevated D-dimer noted * V/Q scan results noted -- accuracy of this difficult to assess given her other pulmonary issues * Chest CT results noted * on heparin gtt * follow respiratory status (4) Near syncope: Code(s): R55 - Syncope and collapse Status: Acute Assessment and Plan: * history noted with symptoms of almost passing out * evaluation and imaging noted * continue supportive therapy (5) Elevated troponin: Code(s): R79.89 - Other specified abnormal findings of blood chemistry Status: Acute Assessment and Plan: * as noted by evaluation in ER * no EKG changes present * denies any chest pain * Cardiology recommendations noted (6) Hypertension: Code(s): I10 - Essential (primary) hypertension Status: Chronic Assessment and Plan: * elevated today * presumably due to being off losartan * follow trend of hemodynamics Possible transfer to [facility] (?) as she receives care there from Hem/Onc, Nephrology, and GI. Will continue to follow. Subjective Date/time seen: 07/17/23 10:02 Interval history: Follow-up for acute kidney injury/acute renal failure on chronic kidney disease. Overall, she states she feels reasonably well; breathing/respiratory status continues to improve and she has been weaned off supplemental oxygen; renal function seems to be doing better as well; no apparent distress note
--- NOTE | 2023-07-17 10:15 | PM.PNPUL ---
Progress Note: A&P Assessment and Plan (1) Acute respiratory failure with hypoxemia: Code(s): J96.01 - Acute respiratory failure with hypoxia Status: Acute (2) Acute hypoxic respiratory failure: Code(s): J96.01 - Acute respiratory failure with hypoxia Status: Acute (3) Pulmonary embolism: Code(s): I26.99 - Other pulmonary embolism without acute cor pulmonale Status: Acute Assessment and Plan: This 67-year-old female with multiple medical problems presented with weakness and near syncope following an outpatient procedure for ovarian cyst removal.? Patient has been diagnosed with probable pulmonary embolism based on abnormal V/Q scan.? The V/Q scan was read as high probability for pulmonary embolism. Patient has been on IV heparin. Of note, the patient had no other symptoms suggestive of acute pulmonary embolism. She had no chest pain palpitations tachycardia hemoptysis or lower extremity pain. When evaluated in the emergency room the Well's score was relatively low. Review of previous chest imaging studies showed prominent pulmonary arteries suggestive of chronic pulmonary hypertension. The patient underwent echocardiogram yesterday that showed elevated pulmonary artery systolic pressure at 59 mmHg. On the basis of the echocardiogram and previous chest CT findings and in conjunction with the rather atypical presentation for acute PE it is very likely that the patient has chronic thromboembolic pulmonary hypertension. Repeat chest x-ray today showed clear lungs. 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 The patient is high risk for bleeding related to chronic anticoagulant use. Patient is awaiting transfer to a tertiary care center where she will be evaluated for possible inferior vena cava interruption versus continuing anticoagulant treatment until the question of acute pulmonary embolism versus chronic thromboembolic pulmonary hypertension is solved. (4) Cnplf-tk-aedxwuv renal failure: Code(s): N17.9 - Acute kidney failure, unspecified; N18.9 - Chronic kidney disease, unspecified Status: Acute (5) Near syncope: Code(s): R55 - Syncope and collapse Status: Acute (6) jail (current) use of antithrombotics/antiplatelets: Code(s): Z79.02 - vermin exterminator (current) use of antithrombotics/antiplatelets Status: Acute (7) Stage 4 chronic kidney disease: Code(s): N18.4 - Chronic kidney disease, stage 4 (severe) Status: Acute (8) Esophageal varices in cirrhosis: Code(s): K74.60 - Unspecified cirrhosis of liver; I85.10 - Secondary esophageal varices without bleeding Status: Acute (9) History of colon cancer: Code(s): Z85.038 - Personal history of other malignant neoplasm of large intestine Status: Acute (10) Abnormal CT scan: Code(s): R93.89 - Abnormal findings on diagnostic imaging of other specified body structures Status: Acute Assessment and Plan: Chest CT showed mild emphysematous changes prominent pulmonary arteries and new nodular infiltrate in right upper lobe. Etiology of right upper lobe infiltrate unclear. Differential diagnosis includes pneumonia and less likely malignancy. The patient was informed about the right lung infiltrate. She will need further follow-up at [facility] where she will be transferred. Subjective Date/time seen: 07/17/23 10:15 Interval history: Patient has no new respiratory symptoms. She feels better. Has no fever cough sputum production. Currently on room air. Review of Systems Review of Systems: All systems reviewed & are unremarkable except as noted in HPI and below (HPI and below) Objective Data Vital Signs Vital Signs: Vital Signs - 24 hr 07/16/23 12:00 07/16/23 12:00 07/16/23 14:00 Temperature 36
--- NOTE | 2023-07-17 13:14 | PM.IMPN ---
Progress Note: A&P Assessment and Plan (1) Acute respiratory failure with hypoxemia: Code(s): J96.01 - Acute respiratory failure with hypoxia Status: Acute (2) Near syncope: Code(s): R55 - Syncope and collapse Status: Acute (3) Gnarn-ye-qlgyvyl renal failure: Code(s): N17.9 - Acute kidney failure, unspecified; N18.9 - Chronic kidney disease, unspecified Status: Acute (4) History of CVA (cerebrovascular accident): Code(s): Z86.73 - Personal history of transient ischemic attack (TIA), and cerebral infarction without residual deficits Status: Acute (5) Stage 4 chronic kidney disease: Code(s): N18.4 - Chronic kidney disease, stage 4 (severe) Status: Acute (6) Esophageal varices in cirrhosis: Code(s): K74.60 - Unspecified cirrhosis of liver; I85.10 - Secondary esophageal varices without bleeding Status: Acute (7) History of colon cancer: Code(s): Z85.038 - Personal history of other malignant neoplasm of large intestine Status: Acute (8) CAD (coronary artery disease): Code(s): I25.10 - Atherosclerotic heart disease of [place] coronary artery without angina pectoris Status: Acute (9) Elevated troponin: Code(s): R79.89 - Other specified abnormal findings of blood chemistry Status: Acute Plan Near syncope Monitor Elevated troponin, Appreciate cardiology input Short of breath Patient has been having shortness in past 1 week, chest x-ray shows no acute cardiopulmonary issues Likely related to PE. Heparin drip, transition to oral if no cardiac plan Echo noted -likely has some component of chronic pulmonary hypertension or chronic pulmonary thromboembolism Question need for IVC filter. Awaiting transfer to [place]. Patient has been accepted ASHA on CKD stage IV CKD due to chemotherapy Likely secondary to poor intake Elevated BUN creatinine above baseline, patient has surgery history Gentle normal saline IV fluid 100 mL/hour, patient was on normal saline 250 mL per hour in the ED Follow-up BMP, urinalysis Avoid nephrotoxic medication Consult sustainable systems analyst Hypertension, Continue home medications History of colon cancer on chemotherapy Follow-up with the [facility] oncologist outpatient Subjective Date/time seen: 07/17/23 13:14 Interval history: No new complaints. Off oxygen. Exam Narrative: GENERAL: Pleasant, in no acute distress. Well-nourished. - EYES: EOMI. Anicteric. - HENT: Moist mucous membranes. - LUNGS: Clear to auscultation bilaterally, no wheezing, rhonchi, or rales. - CARDIOVASCULAR: Regular rate and rhythm. No murmur. No JVD. - ABDOMEN: Soft, tenderness around surgical wound, surgical wound dry and clean,. No palpable masses. - EXTREMITIES: No edema. Peripheral pulses 2+. Non-tender. - NEUROLOGIC: No focal neurological deficits. CN II-XII grossly intact. - PSYCHIATRIC: Awake, Alert and oriented x 3. Appropriate mood and affect. - SKIN: No rashes or lesions. Warm. - LYMPH: No cervical lymphadenopathy. Objective Data Vital Signs Vital Signs: Vital Signs - 24 hr 07/16/23 14:00 07/16/23 16:00 07/16/23 16:00 Temperature Pulse Rate 72 65 65 Respiratory Rate Blood Pressure Pulse Oximetry Oxygen Delivery 07/16/23 16:00 07/16/23 18:00 07/16/23 20:00 Temperature 97.9 F 98.4 F Pulse Rate 64 66 60 Respiratory Rate 16 18 Blood Pressure 144/65 H 146/73 H Pulse Oximetry 98 95 Oxygen Delivery 07/16/23 20:32 07/16/23 23:58 07/16/23 20:00 Temperature 98.4 F Pulse Rate 69 63 56 L Respiratory Rate 16 Blood Pressure 134/67 Pulse Oximetry 95 Oxygen Delivery 07/16/23 20:00 07/16/23 22:00 07/17/23 00:00 Temperature Pulse Rate 66 68 Respiratory Rate Blood Pressure Pulse Oximetry 95 Oxygen Delivery Room Air 07/17/23 04:00 07/17/23 00:00 07/17/23 02:00 Temperature 98.6 F Pulse Rate 69 66 Respiratory Rate 16 Blo
[2023-07-17] MEDS: SODIUM BICARBONATE TAB 650 MG TABLET PO (17:27)
[2023-07-18] VITALS (16 sets, daily range): BP systolic 134–195; BP diastolic 56–83; PULSE 53–81; RESP 16–20; TEMP 36.5–36.9; O2SAT 95–99
[2023-07-18 04:25] LABS: Basophils Absolute Auto 0.2 K/mm3 (0.0-0.1); Basophils Percent Auto 1.7 % (0.2-1.2); Eosinophils Absolute Auto 0.3 K/mm3 (0-0.3); Eosinophils Percent Auto 2.7 % (0-4.4); Hematocrit 40.1 % (37.0-47.0); Immature Granulocyte Percent A 2.1 % (0-0.5); Lymphocytes Absolute Auto 2.19 K/mm3 (0.9-3.2); Lymphocytes Percent Auto 22.6 % (18.3-44.2); Mean Corpuscular HGB Conc 29.9 g/dl (32-36); Mean Corpuscular Hemoglobin 28.8 pg (26-34); Mean Corpuscular Volume 96.4 fl (80-100); Mean Platelet Volume 12.5 fl (7.4-10.4); Monocytes Absolute Auto 1.2 K/mm3 (0.1-0.6); Monocytes Percent Auto 12.7 % (2.6-8.5); Neutrophils Absolute Auto 5.6 K/mm3 (1.3-6.7); Neutrophils Percent Auto 58.2 % (45.5-73.1); Nucleated Red Blood Cells Absolute Auto 1.1 K/mm3 (0.0-0.012); Platelet Count Result 364 k/mm3 (150-375); Red Blood Count 4.16 M/mm3 (4.2-5.4); Red Cell Distribution Width 22.9 % (11.5-14.5); White Blood Count 9.7 K/mm3 (4.5-10.0)
[2023-07-18 04:35] LABS: Alanine Aminotransferase 16 U/L (6-35); Albumin Level 3.1 g/dL (3.5-5.1); Alkaline Phosphatase 89 U/L (38-126); Anion Gap 7 mmol/L (8-16); Aspartate Amino Transferase 30 U/L (14-36); Bilirubin,Total 0.8 mg/dL (0.2-1.3); Blood Urea Nitrogen 33 mg/dL (7-17); Calcium 8.6 mg/dL (8.4-10.2); Carbon Dioxide 16 mmol/L (22-30); Chloride 112 mmol/L (98-107); Estimated CRCL calculation 18 ml/min; Estimated Glomerular Filt Rate 19; Glucose 111 mg/dL (65-110); Phosphorus 3.1 mg/dL (2.5-4.5); Potassium 4.1 mmol/L (3.4-5.0); Sodium 135 mmol/L (137-145)
[2023-07-18 04:39] LABS: Partial Thromboplastin Time 61.6 SECONDS (22.3-36.8)
[2023-07-18 05:55] LABS: Anisocytosis 2+ (NORMAL); Hypochromasia 2+ (NORMAL); Platelet Estimate Adequate (Adequate); Schistocytes Rare (NORMAL)
[2023-07-18 05:56] LABS: Target Cells 1+ (NORMAL)
[2023-07-18] MEDS: HEPARIN SODIUM 5,000 UNITS/ML VIAL 2000 UNITS IV PUSH (06:54)
--- NOTE | 2023-07-18 09:51 | PC.NURSE ---
Spoke with Cindi from [facility]. Updated on pts status. No bed at this time.
[2023-07-18] MEDS: AZITHROMYCIN 250 MG TABLET 500 MG PO (10:51)
[2023-07-18] MEDS: allopurinoL 100 MG TABLET PO (10:51)
[2023-07-18] MEDS: carvediloL 3.125 MG TABLET PO ×2 (10:51→20:31)
[2023-07-18] MEDS: SODIUM BICARBONATE TAB 650 MG TABLET PO ×2 (10:52→17:03)
[2023-07-18] MEDS: CEFDINIR 300 MG CAPSULE PO ×2 (10:52→20:31)
[2023-07-18] MEDS: PANTOPRAZOLE 40 MG TABLET PO (10:52)
[2023-07-18] MEDS: FERROUS SULFATE 325 MG TABLET DR BY MOUTH (10:53)
[2023-07-18] MEDS: HEPARIN SOD/D5W 100 UNITS/ML 25,000 UNITS/250 ML BAG 7 UNITS IV CONT (11:00)
--- NOTE | 2023-07-18 12:46 | P.PNNP_ITS ---
Progress Note: A&P Assessment and Plan (1) ASHA (acute kidney injury): Code(s): N17.9 - Acute kidney failure, unspecified Status: Acute Assessment and Plan: * slow improvement noted * etiology not clear * perhaps random fluctuations in baseline renal function(?) * evaluation to date: * renal ultrasound as noted at [facility] (on 06/25/23): The echogenicity of both kidneys is increased. The right kidney is small in size. The right kidney measures 8.0 cm in length, and the' left, 9.5 cm in length. There is no hydronephrosis in either kidney. There are no renal calculi visualized. There are multiple simple cysts in the left kidney, the largest of which measures 2.7 cm. * UA with possible infection -- however, culture negative * urine electrolytes prerenal * urine eosinophils rare -- possibly related to inflammation? 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 * follows with Dr. Dory Reed at [facility] Nephrology (3) Acute hypoxic respiratory failure: Code(s): J96.01 - Acute respiratory failure with hypoxia Status: Acute Assessment and Plan: * improving (if not resolved) * as noted in ER with shortness of breath and hypoxia * symptomatically better with supplemental oxygen * Pulmonary recommendations noted * elevated D-dimer noted * V/Q scan results noted -- accuracy of this difficult to assess given her other pulmonary issues * Chest CT results noted * on heparin gtt * follow respiratory status (4) Near syncope: Code(s): R55 - Syncope and collapse Status: Acute Assessment and Plan: * history noted with symptoms of almost passing out * evaluation and imaging noted * continue supportive therapy (5) Elevated troponin: Code(s): R79.89 - Other specified abnormal findings of blood chemistry Status: Acute Assessment and Plan: * as noted by evaluation in ER * no EKG changes present * denies any chest pain * Cardiology recommendations noted (6) Hypertension: Code(s): I10 - Essential (primary) hypertension Status: Chronic Assessment and Plan: * elevated in the last few days * presumably due to being off losartan * follow trend of hemodynamics * if renal function improves, not opposed to restart of losartan Possible transfer to [facility] (?) as she receives care there from Hem/Onc, Nephrology, and GI. Will continue to follow. Subjective Date/time seen: 07/18/23 12:46 Interval history: Follow-up for acute kidney injury/acute renal failure on chronic kidney disease. No new issues or problems to report at this time; breathing/respiratory sta
--- NOTE | 2023-07-18 12:46 | PM.PNNEP ---
Progress Note: A&P Assessment and Plan (1) ASHA (acute kidney injury): Code(s): N17.9 - Acute kidney failure, unspecified Status: Acute Assessment and Plan: slow improvement noted etiology not clear perhaps random fluctuations in baseline renal function(?) evaluation to date: renal ultrasound as noted at [facility] (on 06/25/23): The echogenicity of both kidneys is increased. The right kidney is small in size. The right kidney measures 8.0 cm in length, and the' left, 9.5 cm in length. There is no hydronephrosis in either kidney. There are no renal calculi visualized. There are multiple simple cysts in the left kidney, the largest of which measures 2.7 cm. UA with possible infection -- however, culture negative urine electrolytes prerenal urine eosinophils rare -- possibly related to inflammation? 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 follows with Dr. Dory Reed at [facility] Nephrology (3) Acute hypoxic respiratory failure: Code(s): J96.01 - Acute respiratory failure with hypoxia Status: Acute Assessment and Plan: improving (if not resolved) as noted in ER with shortness of breath and hypoxia symptomatically better with supplemental oxygen Pulmonary recommendations noted elevated D-dimer noted V/Q scan results noted -- accuracy of this difficult to assess given her other pulmonary issues Chest CT results noted on heparin gtt follow respiratory status (4) Near syncope: Code(s): R55 - Syncope and collapse Status: Acute Assessment and Plan: history noted with symptoms of almost passing out evaluation and imaging noted continue supportive therapy (5) Elevated troponin: Code(s): R79.89 - Other specified abnormal findings of blood chemistry Status: Acute Assessment and Plan: as noted by evaluation in ER no EKG changes present denies any chest pain Cardiology recommendations noted (6) Hypertension: Code(s): I10 - Essential (primary) hypertension Status: Chronic Assessment and Plan: elevated in the last few days presumably due to being off losartan follow trend of hemodynamics if renal function improves, not opposed to restart of losartan Possible transfer to [facility] (?) as she receives care there from Hem/Onc, Nephrology, and GI. Will continue to follow. Subjective Date/time seen: 07/18/23 12:46 Interval history: Follow-up for acute kidney injury/acute renal failure on chronic kidney disease. No new issues or problems to report at this time; breathing/respiratory status remains stable if not improved and she is off supplemental oxygen; still awaiting transfer to [place].. Exam Narrative: General: WD/WN female in NAD Heart: normal S1 and S2; no rub Lungs: clear to auscultation Abdomen: soft, nontender, nondistended, positive bowel sounds Extremities: no cyanosis or clubbing; no edema Skin: no nodules Objective Data Vital Signs Vital Signs: Vital Signs Temp Pulse Resp BP Pulse Ox O2 Del Method 07/18/23 12:25
[2023-07-18 13:42] LABS: Partial Thromboplastin Time 71.1 SECONDS (22.3-36.8)
--- NOTE | 2023-07-18 16:09 | PM.IMPN ---
Progress Note: A&P Assessment and Plan (1) Acute respiratory failure with hypoxemia: Code(s): J96.01 - Acute respiratory failure with hypoxia Status: Acute (2) Near syncope: Code(s): R55 - Syncope and collapse Status: Acute (3) Lqzup-gl-svuihxs renal failure: Code(s): N17.9 - Acute kidney failure, unspecified; N18.9 - Chronic kidney disease, unspecified Status: Acute (4) History of CVA (cerebrovascular accident): Code(s): Z86.73 - Personal history of transient ischemic attack (TIA), and cerebral infarction without residual deficits Status: Acute (5) Stage 4 chronic kidney disease: Code(s): N18.4 - Chronic kidney disease, stage 4 (severe) Status: Acute (6) Esophageal varices in cirrhosis: Code(s): K74.60 - Unspecified cirrhosis of liver; I85.10 - Secondary esophageal varices without bleeding Status: Acute (7) History of colon cancer: Code(s): Z85.038 - Personal history of other malignant neoplasm of large intestine Status: Acute (8) CAD (coronary artery disease): Code(s): I25.10 - Atherosclerotic heart disease of [place] coronary artery without angina pectoris Status: Acute (9) Elevated troponin: Code(s): R79.89 - Other specified abnormal findings of blood chemistry Status: Acute Plan Near syncope Monitor Elevated troponin, Appreciate cardiology input Short of breath Patient has been having shortness in past 1 week, chest x-ray shows no acute cardiopulmonary issues Likely related to PE. Heparin drip, transition to oral if no cardiac plan Echo noted -likely has some component of chronic pulmonary hypertension or chronic pulmonary thromboembolism Question need for IVC filter. Awaiting transfer to [place]. Patient has been accepted ASHA on CKD stage IV CKD due to chemotherapy Likely secondary to poor intake Elevated BUN creatinine above baseline, patient has surgery history Gentle normal saline IV fluid 100 mL/hour, patient was on normal saline 250 mL per hour in the ED Follow-up BMP, urinalysis Avoid nephrotoxic medication Consult bread icer Hypertension, Continue home medications History of colon cancer on chemotherapy Follow-up with heme oncologist outpatient Subjective Date/time seen: 07/18/23 16:09 Interval history: No new complaints. Off oxygen. Awaiting transfer impatiently Review of Systems Review of Systems: ROS negative except above Objective Data Vital Signs Vital Signs: Vital Signs - 24 hr 07/17/23 18:00 07/17/23 19:41 07/17/23 19:57 Temperature 98.3 F Pulse Rate 67 62 63 Respiratory Rate 16 Blood Pressure 178/70 H Pulse Oximetry 97 Oxygen Delivery 07/17/23 20:00 07/17/23 22:00 07/18/23 00:00 Temperature 98.4 F Pulse Rate 68 57 L 63 Respiratory Rate 16 Blood Pressure 138/67 Pulse Oximetry 95 Oxygen Delivery 07/18/23 00:00 07/18/23 00:00 07/18/23 02:00 Temperature Pulse Rate 63 64 66 Respiratory Rate 16 Blood Pressure Pulse Oximetry 95 Oxygen Delivery Room Air 07/18/23 04:00 07/18/23 07:39 07/18/23 10:51 Temperature 97.7 F 98.2 F Pulse Rate 62 58 L 81 Respiratory Rate 18 20 Blood Pressure 134/56 L 159/63 H Pulse Oximetry 95 98 Oxygen Delivery 07/18/23 11:25 07/18/23 08:00 07/18/23 10:00 Temperature 98.5 F Pulse Rate 57 L 65 60 Respiratory Rate 20 Blood Pressure 195/73 H Pulse Oximetry 99 Oxygen Delivery 07/18/23 12:00 07/18/23 08:00 07/18/23 14:00 Temperature Pulse Rate 57 L 63 53 L Respiratory Rate 16 Blood Pressure Pulse Oximetry 95 Oxygen Delivery Room Air 07/18/23 12:25 07/18/23 15:39 Temperature 98.0 F Pulse Rate 64 Respiratory Rate 17 Blood Pressure 159/83 H 180/69 H Pulse Oximetry 99 Oxygen Delivery Intake/Output Intake/Output: Intake & Output 07/15/23 07/16/23 07/17/23 07/18/23 23:59 23:59 23:59 23:59 Inta
[2023-07-18 19:49] LABS: Partial Thromboplastin Time 85.8 SECONDS (22.3-36.8)
--- NOTE | 2023-07-19 12:09 | PM.TDS ---
Transfer Discharge Sum: Prov Provider Date of admission: 07/15/23 11:43 Primary care physician: Snehal Schroeder, Admitting clinician: Ryan Whitten MD Consults: 07/14/23 Consult to Physician Routine Comment: Consulting Provider: Bertrand Yadav call out clerk/ group to consult: On-call slitting machine feeder Reason for consultation: Elevated troponin, shortness of breath, near-syncope Has provider been notified: Yes Consult to Physician Routine Comment: Consulting Provider: Altagracia Ren call out clerk/ group to consult: On-call hydrator operator Reason for consultation: Acute on chronic kidney failure Has provider been notified: Yes Consult to Physician Routine Comment: Consulting Provider: Aj Ferguson Reason for consultation: PE Has provider been notified: Yes DS: Admitting Diagnosis Discharge Date 07/18/23 Admitting Diagnosis Near syncope Transfer Discharge Sum: Med Medications Active and Home Medications: Home Medications ruxolitinib 5 mg tablet (Jakafi) 5 mg PO DAILY 02/08/22 [History Confirmed 07/14/23] pantoprazole 40 mg tablet,delayed release (Protonix) 40 mg PO QAM 12/25/22 [History Confirmed 07/14/23] allopurinol 100 mg tablet 100 mg PO DAILY 07/12/23 [History Confirmed 07/14/23] carvedilol 3.125 mg tablet 3.125 mg PO BID 07/12/23 [History Confirmed 07/14/23] ferrous sulfate 325 mg (65 mg iron) tablet (FeroSul) 325 mg PO 3XW 07/12/23 [History Confirmed 07/14/23] losartan 100 mg tablet 100 mg PO DAILY 07/12/23 [History Confirmed 07/14/23] hydrocodone 5 mg-acetaminophen 325 mg tablet 1 tablet PO Q4H PRN pain #20 tabs 07/13/23 [Rx Confirmed 07/14/23] Transfer Discharge Sum: Hosp Hospital Course Hospital course: Jennifer Georges is a 67 year old female Assessment and Plan (1) Acute respiratory failure with hypoxemia: ?Code(s): J96.01 - Acute respiratory failure with hypoxia ?Status:?Acute (2) Near syncope: ?Code(s): R55 - Syncope and collapse ?Status:?Acute (3) Fvlbc-qd-noarkpt renal failure: ?Code(s): N17.9 - Acute kidney failure, unspecified; N18.9 - Chronic kidney disease, unspecified ?Status:?Acute (4) History of CVA (cerebrovascular accident): ?Code(s): Z86.73 - Personal history of transient ischemic attack (TIA), and cerebral infarction without residual deficits ?Status:?Acute (5) Stage 4 chronic kidney disease: ?Code(s): N18.4 - Chronic kidney disease, stage 4 (severe) ?Status:?Acute (6) Esophageal varices in cirrhosis: ?Code(s): K74.60 - Unspecified cirrhosis of liver; I85.10 - Secondary esophageal varices without bleeding ?Status:?Acute (7) History of colon cancer: ?Code(s): Z85.038 - Personal history of other malignant neoplasm of large intestine ?Status:?Acute (8) CAD (coronary artery disease): ?Code(s): I25.10 - Atherosclerotic heart disease of [place] coronary artery without angina pectoris ?Status:?Acute (9) Elevated troponin: ?Code(s): R79.89 - Other specified abnormal findings of blood chemistry ?Status:?Acute Plan Near syncope Monitor Elevated troponin, Appreciate cardiology input Short of breath Patient has been having shortness in past 1 week, chest x-ray shows no acute cardiopulmonary issues Likely related to PE. Heparin drip, transition to oral if no cardiac plan Echo noted -likely has some component of chronic pulmonary hypertension or chronic pulmonary thromboembolism Question need for IVC filter.? Patient was transferred to [facility] for higher level of care ASHA on CKD stage IV CKD due to chemotherapy Likely secondary to poor intake Elevated BUN creatinine above baseline, patient has surgery history Gentle? normal saline IV fluid 100 mL/hour, patient was on normal saline 250 mL per hour in the ED Follow-up BMP, urinalysis Avoid nephrotoxic medication continue follow up at [facility] Hypertension, Continue home medications History of
== END 2023-07-18 21:30 | disposition short-term general hospital (02) | DRG 314 ==
LOC: ANHED 14:10 → ANHIMU 14:19
PROVIDERS: Chiropractor; Emergency Medicine; Internal Medicine; Internal Medicine Nephrology; Admitting Provider Hospitalist; Emergency Provider Physician Assistant; PCP Internal Medicine; Visit Provider Internal Medicine
DX: I27.24 Chronic thromboembolic pulmonary hypertension (principal); I26.99 Other pulmonary embolism without acute cor pulmonale; J96.01 Acute respiratory failure with hypoxia; I85.00 Esophageal varices without bleeding; N17.9 Acute kidney failure, unspecified; N18.4 Chronic kidney disease, stage 4 (severe); I12.9 Hypertensive chronic kidney disease with stage 1 through stage 4 chronic kidney disease, or unspecified chronic kidney disease; I25.10 Atherosclerotic heart disease of native coronary artery without angina pectoris; J44.9 Chronic obstructive pulmonary disease, unspecified; D75.839 Thrombocytosis, unspecified; E78.5 Hyperlipidemia, unspecified; K74.60 Unspecified cirrhosis of liver; K21.9 Gastro-esophageal reflux disease without esophagitis; R79.89 Other specified abnormal findings of blood chemistry; Z20.822 Contact with and (suspected) exposure to COVID-19; Z86.73 Personal history of transient ischemic attack (TIA), and cerebral infarction without residual deficits; Z95.1 Presence of aortocoronary bypass graft; Z87.891 Personal history of nicotine dependence; Z90.81 Acquired absence of spleen; Z85.038 Personal history of other malignant neoplasm of large intestine
CPT/HCPCS: 36415; 71045; 71046; 71250; 78582; 80053; 81001; 81050; 82550; 82570; 83880; 84100; 84156; 84300; 84484; 84540; 85014; 85018; 85025; 85380; 85610; 85730; 85999; 86850; 86900; 86901; 87086; 87088; 87634; 87635; 88305; 93005; 93306; 93880; 93970; 96361; 96365; 96366; 99285; A9270; A9540; A9558; G0378; J1100; J1644; J2371; J2405; J2704; J3010; J7030; J7040; J7120

== ENCOUNTER 2023-09-18 07:20 | Outpatient (CLI) | payer MEDICARE, SELFPAY ==
--- NOTE | ~2023-09-18 | MM_ITS ---
EXAMINATION: MM screening garth BI w tasha HISTORY: Screening mammogram TECHNIQUE: Craniocaudal and mediolateral oblique 3-D tomosynthesis images were obtained and synthetic 2-D images were generated. CAD analysis was submitted and interpreted. COMPARISON: 09/13/2022, 07/15/2021, 07/13/2020 bilateral screening mammogram examinations BREAST PARENCHYMAL COMPOSITION: There are scattered areas of fibroglandular density. FINDINGS: Right breast: There is no evidence of suspicious mass, calcification, or architectural dist ortion to suggest malignancy in the right breast. There has been no suspicious interval change. Left breast: There is focal asymmetry and possible architectural distortion in the anterior left breast on MLO vie w. Diagnostic left mammogram is recommended, with ultrasound if required IMPRESSION: 1. Left mammographic asymmetry 2. Diagnostic left mammogram is recommended, with ultrasound if required BI-RADS Category 0: Incomplete: Needs additional imaging evaluation. Reviewed, dictated and finalized at location A. [employer]
== END 2023-09-18 07:21 | disposition home or self-care (01) ==
PROVIDERS: PCP Internal Medicine; Visit Provider Obstetrics & Gynecology
DX: Z12.31 Encounter for screening mammogram for malignant neoplasm of breast (principal); R92.8 Other abnormal and inconclusive findings on diagnostic imaging of breast
CPT/HCPCS: 77063; 77067

== ENCOUNTER 2023-11-09 09:45 | Outpatient (CLI) | payer MEDICARE, SELFPAY ==
--- NOTE | ~2023-11-09 | MMUS_ITS ---
EXAMINATION: MM diagnostic garth LT w tasha, US breast LT limited HISTORY: Focal asymmetry of the left breast and possible architectural distortion on screening mammog ruth ann TECHNIQUE: Additional 3-D tomosynthesis images of the left breast were performed and synthetic 2-D im ages were generated. CAD analysis was submitted and interpreted. High resolution limited left breast ultrasound was performed. COMPARISON: 09/18/2023, 09/13/2022, 07/15/2021, 07/13/2020 BREAST PARENCHYMAL COMPOSITION: There are scattered areas of fibroglandular density. FINDINGS: MAMMOGRAPHIC FINDINGS: There is a return to baseline fibroglandular appearance with spot compression of the left breast in t he areas questioned on screening mammogram. No suspicious mass, calcification, or architectural disto rtion are identified. ULTRASOUND: There is no evidence of focal abnormal solid or cystic mass in the vicinity of the mammographic findi ng in question. IMPRESSION: 1. No mammographic or sonographic evidence of malignancy. 2. Recommend routine screening mammography in one year. BI-RADS Category 1: Negative Reviewed, dictated and finalized at location A. IC AFFAIRS OFFICER IMPRESSION: 1. No mammographic or sonographic evidence of malignancy. 2. Recommend routine screening mammography in one year. BI-RADS Category 1: Negative
== END 2023-11-09 09:46 | disposition home or self-care (01) ==
PROVIDERS: PCP Internal Medicine; Visit Provider Obstetrics & Gynecology
DX: R92.8 Other abnormal and inconclusive findings on diagnostic imaging of breast (principal)
CPT/HCPCS: 76642; 77061; 77065; G0279

== ENCOUNTER 2024-04-23 06:58 | Outpatient (CLI) | payer MEDICARE, SELFPAY ==
--- NOTE | ~2024-04-23 | CT_ITS ---
CT Scan of the Chest without Contrast: Clinical Indication: Pulmonary nodules Technique: Contiguous sections were acquired throughout the chest without intravenous contrast. Dose reduction technique was used on this scan by utilizing automated exposure control and iterative recon struction technique. The dose-length product (DLP) was 87.54 mGy-cm. COMPARISON: 07/13/2023 Findings: There is no evidence of any significant mediastinal, hilar or axillary lymphadenopathy. Calcified med iastinal nodes are present. Coronary artery calcifications are present. There is no evidence of pleural or pericardial effusion. Upper lobe emphysema present. Calcified left basilar granuloma present. Stable small left apical pulm onary nodule. Images through the upper abdomen reveal no abnormalities. Impression: Previously noted right upper lobe consolidation resolved. Stable emphysema and left apical pulmonary nodule. Reviewed, dictated and finalized at [facility]. Impression: Previously noted right upper lobe consolidation resolved. Stable emphysema and left apical pulmonary nodule.
== END 2024-04-23 06:59 | disposition home or self-care (01) ==
PROVIDERS: PCP Internal Medicine; Visit Provider Internal Medicine Medical Oncology
DX: R91.8 Other nonspecific abnormal finding of lung field (principal); J43.9 Emphysema, unspecified; R91.1 Solitary pulmonary nodule
CPT/HCPCS: 71250

== ENCOUNTER 2025-02-19 10:35 | Outpatient (CLI) | payer MEDICARE, SELFPAY ==
--- NOTE | ~2025-02-19 | MM_ITS ---
EXAMINATION: MM screening garth BI w tasha HISTORY: Screening TECHNIQUE: Craniocaudal and mediolateral oblique 3-D tomosynthesis images were obtained and synthetic 2-D images were generated. CAD analysis was submitted and interpreted. COMPARISON: Comparison to multiple prior studies sequentially, with oldest reviewed study dated 06/25. BREAST PARENCHYMAL COMPOSITION: Not dense: There are scattered areas of fibroglandular density. FINDINGS: There is no evidence of suspicious mass, calcification, or architectural distortion to sugg est malignancy in either breast. There has been no suspicious interval change. IMPRESSION: 1. No mammographic evidence of malignancy. 2. Recommend routine screening mammography in one year. BI-RADS Category 1: Negative Reviewed, dictated and finalized at location A.
--- OUTSIDE RECORDS SUMMARY | 2025-02-19 10:40 | XMS_ITS | Continuity of Care Document ---
Author Organization [facility] Address [address] [place] [address] [address] [place] [address] Phone Care Team Providers Care Senior Cisco Network Engineer Name Role Phone Joiner OD, Dmitry Unavailable Unavailable Procedures Procedure Date Eye Exam & Treatment Refraction Advance Directives Directive Yes / No Effective Date File Name No Information Encounters Encounter Description Practice Location Reason(s) For Visit Diagnoses Date Provider Providers Copied on Encounter [facility], [address] [place] [address] [address], [place], [place], [id number], [place] tel:[phone] [facility] No Information 6-200 7 Joiner OD Dmitry. [address] , [address], [place], [address], [place]. tel:[phone] Family History Family Member Type Diagnosis Age At Onset No Information Payers Payer name Insurance type Covered democrat ID Authoriza tion(s) No Information Social History Type Description Quantity Date Captured Comments Sex Female Smoking Status No Information Chief Complaint And Reason For Visit No Information Reason For Referral Reason For Referral No Information History Of Present Illness Encounter Date Complaint History Of Prese nt Illness No Information Functional Status Date Functional Assessmen t No Information Instructions Date Instruction Additional Infor mation No Information Assessments Type Assessment Date No Information Patient Care Teams Name Effective Dates (start - stop) Status Members No Information
--- OUTSIDE RECORDS SUMMARY | 2025-02-19 10:40 | XMS_ITS | Clinical Summary ---
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 [address] [facility] OPT[employer] PPO [id number]
--- OUTSIDE RECORDS SUMMARY | 2025-02-19 10:40 | XMS_ITS | Clinical Summary ---
Author Organization [facility] Address [address] [place] [address] Care Team Providers Care Percussion Tuner Name Role Phone Andrews Rashid MD Primary Care Provider Source Comments [facility],non-owned Affiliates and Associated Physician Practices is amultiple site organization consisting of ambulatory clinics and hospital sitesin [place], [place], [place] and [place]. This disclosure is being madepursuant to the Care Everywhere program and may not contain all information available regarding this patient. Last updated 18.[facility] Allergies Active Allergy Reactions Criticality Noted Date Comments Contrast-Iodinated Agents For Ct/Other Anaphylaxis High 10/26/2018 Sumatriptan Anaphylaxis High 10/26/2018 Penicillins GI Discomfort 10/26/2018 Medications * Be aware that medications may not be up to date on this document. Alwaysverify current medications with the patient. clopidogrel (PLAVIX) 75 MG tablet Take 1 tablet by mouth once daily 90 tablet 10/26/2018 Active Social History Tobacco Use Types Packs/Day Years Used Date Smoking Tobacco: Former Smokeless Tobacco: Never Alcohol Use Standard Drinks/Week Comments Yes 0 (1 standard drink = 0.6 oz pur e alcohol) occasionally Comments No Sex and Gender Information Value Date Recorded Sex Assigned at Not on file Legal Sex Female 6:24 AM GEOLOGIST PETROLEUM Gender Identity Not on file Sexual Orientation Not on file Last Filed Vital Signs Vital Sign Reading Time Taken Comments Blood Pressure 179/87 10/26/2018 9:15 PM GEOLOGIST PETROLEUM Pulse 57 10/26/2018 8:53 PM GEOLOGIST PETROLEUM Temperature 36.6 C (97.9 F) 10/26/2018 4:00 PM GEOLOGIST PETROLEUM Respiratory Rate 16 10/26/2018 8:53 PM GEOLOGIST PETROLEUM Oxygen Saturation 97% 10/26/2018 9:15 PM GEOLOGIST PETROLEUM Inhaled Oxygen Concentration - - Weight 68 kg (150 lb) 10/26/2018 4:00 PM GEOLOGIST PETROLEUM Height 152.4 cm (5') 10/26/2018 4:00 PM GEOLOGIST PETROLEUM Body Mass Index 29.29 10/26/2018 4:00 PM GEOLOGIST PETROLEUM Plan of Treatment Health Maintenance Due Date Last Done Comments BONE DENSITY TESTING 1957 COLOGUARD (AGES 45-75) - COLON CA SCREENING 1957 COLON MONITORING 1957 COLONOSCOPY - COLON CA SCREENING 1957 CT COLONOGRAPHY - COLON CA SCREENING 1957 Colorectal Cancer Screening 1957 FIT - COLON CA SCREENING 1957 FLEX SIG - COLON CA SCREENING 1957 MAMMOGRAM 1957 HEPATITIS C SCREENING 11/15/1975 DTAP/TDAP/TD VACCINES (1 - Tdap) 1976 PNEUMOCOCCAL VACCINE 50+ (1 of 1 - PCV) 2007 ZOSTER VACCINE (1 of 2) 2007 LIPID TESTING 05/18/2019 05/18/2014 COVID-19 VACCINE (1 - season) 2024 DEPRESSION SCREENING 09/24/2024 INFLUENZA VACCINE (Season Ended) 2025 07/18/2022, 07/29/2021, 07/25/2021, Additional history exists Respiratory Syncytial Virus (RSV) Vaccine Pt: or over 60 yrs (1 - 1-dose 75+ series) 2032 HEPATITIS B VACCINE Aged Out No longe r eligible based on patient's age to complete this topic HIB VACCINE Aged Out No longer eligi ble based on patient's age to complete this topic HPV VACCINE Aged Out No longer eligi ble based on patient's age to complete this topic MENINGOCOCCAL (Group B) VACCINE SHARED DECISION-MAKING Aged Out No longer eligible based on patient's age to complete this topic MENINGOCOCCAL GROUPS A/C/Y/W VACCINE Aged Out No longer eligible based on patient's age to complete this topic Procedures Procedure Name Priority Date/Time Associated Diagnosis Comments LIPID PROFILE Routine 05/18/2014 7:58 AM CDT from Last 3 Months or Most Recently Relevant to Health Maintenance Results * (ABNORMAL) LIPID PROFILE (05/18/2014 7:58 AM CDT) Cholesterol Total 262(H) <200 mg/dL [facility] HDL 47 >40 mg/dL [facility] Comment: ATP III Classification of HDL Cholesterol: <40 mg/dL: Considered a major risk factor. >60 mg/dL: Considered a negative risk factor. LDL Calculated 197(H) <100 mg/dL [facility] Comment: ATP III Classification of LDL Cholesterol: <100 mg/dL: Optimal 100 - 129 mg/dL: Near Optimal/Above Optimal 130 - 159 mg/dL: Borderline High 160 - 189 mg/dL: High >190 mg/dL: Very High Triglycerides 89 <150 mg/dL [facility] Comment: ATP III Classification of Triglycerides: <150 mg/dL: Normal 150 - 199 mg/dL: Borderline High 200 - 400 mg/dL: High >500 mg/dL: Very High Blood specimen (specimen) BLOOD SPECIMEN / Unknown 05/18/2014 7:58 AM CDT 05/18/2014 7:58 AM CDT Setphani Mercer MD LAB - CHEMISTRY ORDERABLES Final Result Performing Organization Address City/State/[facility] Co de Phone Number [address] [phone] from Last 3 Months or Most Recently Relevant to Health Maintenance Insurance [facility] [place] [facility] [place] Address: [id number] [place] [address] [employer] MANAGED MEDICARE ADV Care Teams Percussion Tuner Relationship Specialty Start Date End Date Andrews Rashid MD [address] [place] [id number] PCP - General 04/03/18
== END 2025-02-19 10:36 | disposition home or self-care (01) ==
LOC: ANHIMG 10:38
PROVIDERS: PCP Internal Medicine; Visit Provider Obstetrics & Gynecology
DX: Z12.31 Encounter for screening mammogram for malignant neoplasm of breast (principal)
CPT/HCPCS: 77063; 77067